=== PATIENT | female | born 1970 | race Caucasian/White ===

== ENCOUNTER → 2016-11-20 | Outpatient (CLI) | payer MEDICARE | LOC: M LRY 09:17 | PROVIDERS: ATTEND Family Medicine | DX: I95.0 Idiopathic hypotension (principal) ==

== ENCOUNTER → 2016-12-05 | Outpatient (CLI) | payer OTHER ==
[2016-12-05 17:36] LABS: PERCENT SATURATION 27.6 % (13.2-37.4)
[2016-12-05 17:44] LABS: FOLATE 20.2 NG/ML (>5.4)
[2016-12-05 18:11] LABS: MEAN CORPUSCULAR HEMOGLOBIN 32.2 pg (27.0-33.0); MEAN CORPUSCULAR HGB CONC 31.8 g/dl (32.0-36.5); MEAN CORPUSCULAR VOLUME 101.4 fl (80.0-96.0); RED CELL DISTRIBUTION WIDTH 13.9 % (11.5-14.5); RETIC HEMOGLOBIN CONTENT CHr 34.4 PG (24-36); RETICULOCYTE % ADVIA2120 1.9 % (0.5-1.5); WHITE BLOOD COUNT 1.3 K/mm3 (4.0-10.0)
== END ==
LOC: M LRY 13:12
PROVIDERS: ATTEND Family Medicine
DX: D50.9 Iron deficiency anemia, unspecified (principal)

== ENCOUNTER → 2017-01-10 | Outpatient (CLI) | payer MEDICARE, OTHER ==
--- NOTE | 2017-01-17 10:54 | REP ---
PET/CT: History: Restaging cervical malignancy. The patient is status post chemo and radiation therapy. Comparisons: Comparison PET-CT study history been retrieved from [facility] dated August 23, 2016 is reviewed. TECHNIQUE: 68 minutes following the intravenous injection of a 8.0 mCi dose of F-18 FDG, three-dimensional PET scintigraphy is acquired from the skull base to the proximal thighs. Triplanar noncontrast CT scanning is acquired through the same anatomic range for attenuation correction, and image registration with scan parameters optimized to minimize radiation exposure to the patient. PET scintigraphy and CT datasets were fused and displayed on a workstation with multiplanar and projection display capability. PET/CT Findings: There is no abnormal hypermetabolic uptake in the uterus cervix, adnexal regions, or pelvic lymph nodes. No retroperitoneal hypermetabolic uptake is seen in the abdomen. No abnormal hypermetabolic uptake is seen in the thorax. Head and neck soft tissues demonstrate a normal variant physiologic uptake in the anterior tongue and at the level of the arytenoid cartilage in the larynx. There is a right-sided Kaqeng-Q-Ckdy catheter. The patient status post craniotomy with a large area of encephalomalacia in the right temporal lobe. There is a atrial septal defect closure device visible and the heart. Impression: The previously noted cervical and right iliac or adnexal hypermetabolic uptake has resolved. No abnormal hypermetabolic uptake seen on today's scan. Signed by Sunil Villegas MD 01/17/2017 10:46 A
== END ==
LOC: M RAD 14:00
PROVIDERS: ATTEND Obstetrics & Gynecology Gynecologic Oncology
DX: C53.9 Malignant neoplasm of cervix uteri, unspecified (principal)
CPT/HCPCS: 78815; A9552

== ENCOUNTER → 2017-03-23 | Outpatient (CLI) | payer MEDICARE, OTHER ==
--- NOTE | 2017-03-23 12:10 | REP ---
LEFT WRIST, FOUR VIEWS: HISTORY: Pain. There is no acute fracture or dislocation. The joint spaces are normal in appearance. IMPRESSION: There is no wrist fracture or dislocation. Signed by Trung Griffith MD 03/23/2017 12:12 P
[2017-03-23 13:41] LABS: MEAN CORPUSCULAR HEMOGLOBIN 32.3 pg (27.0-33.0); MEAN CORPUSCULAR HGB CONC 33.2 g/dl (32.0-36.5); MEAN CORPUSCULAR VOLUME 97.4 fl (80.0-96.0); RED CELL DISTRIBUTION WIDTH 11.2 % (11.5-14.5); WHITE BLOOD COUNT 1.8 K/mm3 (4.0-10.0)
[2017-03-23 14:22] LABS: ALBUMIN 3.8 GM/DL (3.2-5.2); ALBUMIN/GLOBULIN RATIO 1.09 (1.00-1.93); ALKALINE PHOSPHATASE 66 U/L (45-117); ALT/SGPT 39 U/L (12-78); ANION GAP 7 MEQ/L (8-16); AST/SGOT 23 U/L (15-37); BILIRUBIN,TOTAL 0.2 MG/DL (0.2-1.0); BLOOD UREA NITROGEN 13 MG/DL (7-18); CALCIUM LEVEL 8.9 MG/DL (8.5-10.1); CARBON DIOXIDE LEVEL 32 MEQ/L (21-32); CHLORIDE LEVEL 102 MEQ/L (98-107); CHOLESTEROL LEVEL 248 MG/DL (<200); CREATININE FOR GFR 0.77 MG/DL (0.55-1.02); GLOMERULAR FILTRATION RATE > 60.0 (>58); GLUCOSE, FASTING 85 MG/DL (70-105); POTASSIUM SERUM 3.9 MEQ/L (3.5-5.1); SODIUM LEVEL 141 MEQ/L (136-145); TOTAL PROTEIN 7.3 GM/DL (6.4-8.2); TRIGLYCERIDES LEVEL 203 MG/DL (<150); URIC ACID 3.7 MG/DL (2.6-6.0)
[2017-03-26 00:10] LABS: Lyme Disease IgG/IgM Antibodie <0.91 ISR (0.00-0.90); Lyme Disease IgM Ab Quantitati <0.80 index (0.00-0.79)
== END ==
LOC: M LRY 10:00
PROVIDERS: ATTEND Family Medicine
DX: M25.542 Pain in joints of left hand (principal); F32.9 Major depressive disorder, single episode, unspecified; D53.9 Nutritional anemia, unspecified; R73.01 Impaired fasting glucose

== ENCOUNTER → 2017-05-08 | Outpatient (REF) | payer MEDICARE, OTHER ==
[2017-05-08 13:33] LABS: PERCENT SATURATION 5.2 % (13.2-37.4)
[2017-05-08 14:11] LABS: CA 125 19.9 U/ML (<30.2)
== END ==
LOC: M LAB REF 12:14
PROVIDERS: ATTEND Internal Medicine Medical Oncology
DX: D50.9 Iron deficiency anemia, unspecified (principal); Z85.41 Personal history of malignant neoplasm of cervix uteri

== ENCOUNTER → 2017-07-27 | Outpatient (CLI) | payer MEDICARE, OTHER ==
[2017-07-27 13:10] LABS: FREE T4 1.09 NG/DL (0.76-1.46)
== END ==
LOC: M LRY 10:22
PROVIDERS: ATTEND Family Medicine
DX: E05.90 Thyrotoxicosis, unspecified without thyrotoxic crisis or storm (principal)

== ENCOUNTER → 2017-08-10 | Outpatient (CLI) | payer MEDICARE, OTHER ==
--- NOTE | 2017-08-13 19:12 | SLEEPCENT ---
DATE OF PROCEDURE: 08/10/2017 ORDERED BY: Roxy Garnica Nocturnal polysomnography was performed for evaluation of sleep physiology in this patient with a history of excessive somnolence and nonrestorative sleep. 8 hours and 52 minutes of data were reviewed. There were 291 minutes of sleep identified. Sleep latency was quite prolonged at 213 minutes. Rapid eye movement (REM) sleep occurred on time at 60.5 minutes. Sleep architecture was fair with some minimal fragmentation. Overall sleep efficiency was low at 55.7%. The patient's EKG showed a sinus rhythm with premature atrial contractions (PACs), average heart rate 54 beats per minute. EEG showed reasonably normal waveforms. No focal events were identified. There were only five respiratory events identified of 10 seconds in duration or greater for an apnea-hypopnea index within normal limits at 1. Some snoring was noted. Arousals from limb events occurred only once per hour. There was some limb activity, but arousals from limb events only occurred 3.5 times per hour. IMPRESSION: Normal nocturnal polysomnography with snoring. 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 Copy To: Dr. Galan
== END ==
LOC: M SLEEP 19:28
PROVIDERS: ATTEND Nurse Practitioner Adult Health
DX: R40.0 Somnolence (principal)

== ENCOUNTER → 2017-11-12 | Outpatient (CLI) | payer MEDICARE, OTHER | LOC: M LRY 11:24 | DX: M77.8 Other enthesopathies, not elsewhere classified (principal); M41.55 Other secondary scoliosis, thoracolumbar region; M25.50 Pain in unspecified joint ==

== ENCOUNTER → 2017-11-12 | Outpatient (CLI) | payer MEDICARE, OTHER ==
[2017-11-12 15:11] LABS: HEMATOCRIT 33.6 % (36.0-47.0); HEMOGLOBIN 10.6 g/dl (12.0-16.0); MEAN CORPUSCULAR HEMOGLOBIN 33.3 pg (27.0-33.0); MEAN CORPUSCULAR HGB CONC 31.5 g/dl (32.0-36.5); MEAN CORPUSCULAR VOLUME 105.7 fl (80.0-96.0); PLATELET COUNT, AUTOMATED 167 10^3/uL (150-450); RED BLOOD COUNT 3.18 10^6/uL (4.00-5.40); RED CELL DISTRIBUTION WIDTH 11.5 % (11.5-14.5)
[2017-11-12 15:38] LABS: ALBUMIN 3.7 GM/DL (3.2-5.2); ALBUMIN/GLOBULIN RATIO 1.09 (1.00-1.93); ALKALINE PHOSPHATASE 60 U/L (45-117); ALT/SGPT 18 U/L (12-78); ANION GAP 5 MEQ/L (8-16); AST/SGOT 10 U/L (7-37); BILIRUBIN,TOTAL 0.3 MG/DL (0.2-1.0); BLOOD UREA NITROGEN 9 MG/DL (7-18); CALCIUM LEVEL 9.1 MG/DL (8.5-10.1); CARBON DIOXIDE LEVEL 34 MEQ/L (21-32); CHLORIDE LEVEL 102 MEQ/L (98-107); CREATININE FOR GFR 0.56 MG/DL (0.55-1.02); GLOMERULAR FILTRATION RATE > 60.0 (>58); GLUCOSE, FASTING 76 MG/DL (70-100); POTASSIUM SERUM 3.9 MEQ/L (3.5-5.1); SODIUM LEVEL 141 MEQ/L (136-145); TOTAL PROTEIN 7.1 GM/DL (6.4-8.2); URIC ACID 2.6 MG/DL (2.6-6.0)
[2017-11-12 15:52] LABS: POS COUNT POS FLAG; WHITE BLOOD COUNT 1.7 10^3/uL (4.0-10.0)
[2017-11-12 16:15] LABS: ERYTHROCYTE SEDIMENTATION RATE 18 mm/hr (0-20)
== END ==
LOC: M LRY 11:10
DX: M77.8 Other enthesopathies, not elsewhere classified (principal); M41.55 Other secondary scoliosis, thoracolumbar region; M25.50 Pain in unspecified joint; G40.89 Other seizures; K51.90 Ulcerative colitis, unspecified, without complications; R53.83 Other fatigue
CPT/HCPCS: 84443

== ENCOUNTER → 2017-11-27 | Outpatient (REF) | payer MEDICARE, OTHER ==
[2017-11-27 14:31] LABS: SLIDE REVIEW Report; SOURCE PERIPHERAL SMEAR
[2017-11-27 14:32] LABS: REASON FOR REVIEW WBC/LEUKEMIA/BLAST
[2017-11-27 14:52] LABS: ERYTHROCYTE SEDIMENTATION RATE 25 mm/hr (0-20)
[2017-11-27 15:02] LABS: C REACTIVE PROTEIN QUANTITATIV < 0.30 MG/DL (0.00-0.30); FERRITIN 148 NG/ML (8-252); IRON (FE) 82 UG/DL (50-170); PERCENT SATURATION 29.3 % (13.2-45.0); TOTAL IRON BINDING CAPACITY 280 UG/DL (250-450)
[2017-11-27 15:44] LABS: VITAMIN B12 LEVEL 184 PG/ML
[2017-11-27 15:45] LABS: FOLATE 16.1 NG/ML
[2017-11-27 16:13] LABS: CA 125 5.2 U/ML (<30.2)
[2017-11-28 10:06] LABS: HEPATITIS C VIRUS ABY INDEX < 0.0 INDEX (<0.8)
[2017-11-28 10:07] LABS: HIV 1&2 SCREEN CENTAUR NEGATIVE (NEGATIVE)
== END ==
LOC: M LAB REF 13:02
DX: Z85.41 Personal history of malignant neoplasm of cervix uteri (principal); D50.9 Iron deficiency anemia, unspecified; D72.819 Decreased white blood cell count, unspecified
CPT/HCPCS: 82525

== ENCOUNTER → 2017-12-10 | Outpatient (REF) | payer MEDICARE, OTHER ==
[2017-12-10 11:13] LABS: FERRITIN 104 NG/ML (8-252); IRON (FE) 67 UG/DL (50-170); PERCENT SATURATION 22.4 % (13.2-45.0); TOTAL IRON BINDING CAPACITY 299 UG/DL (250-450)
== END ==
LOC: M LAB REF 10:20
DX: D72.819 Decreased white blood cell count, unspecified (principal); D50.9 Iron deficiency anemia, unspecified; C53.9 Malignant neoplasm of cervix uteri, unspecified
CPT/HCPCS: 83550

== ENCOUNTER → 2018-01-08 | Outpatient (REF) | payer MEDICARE, OTHER ==
[2018-01-10 10:18] LABS: LEVETIRACETAM (KEPPRA) 36.4 ug/mL (10.0-40.0)
== END ==
LOC: M LAB REF 13:24
DX: G40.89 Other seizures (principal)
CPT/HCPCS: 80180

== ENCOUNTER → 2018-02-12 | Outpatient (REF) | payer MEDICARE, OTHER ==
[2018-02-12 14:35] LABS: REASON FOR REVIEW WBC/LEUKEMIA/BLAST; SLIDE REVIEW Report; SOURCE PERIPHERAL SMEAR
[2018-02-12 15:02] LABS: FERRITIN 94 NG/ML (8-252); IRON (FE) 73 UG/DL (50-170); PERCENT SATURATION 23.2 % (13.2-45.0); TOTAL IRON BINDING CAPACITY 314 UG/DL (250-450)
== END ==
LOC: M LAB REF 13:23
DX: Z85.41 Personal history of malignant neoplasm of cervix uteri (principal); D50.9 Iron deficiency anemia, unspecified; D72.819 Decreased white blood cell count, unspecified
CPT/HCPCS: 83550

== ENCOUNTER → 2018-03-15 | Outpatient (REF) | payer MEDICARE, OTHER | LOC: M LAB REF 08:02 | DX: C91.Z0 Other lymphoid leukemia not having achieved remission (principal) | CPT/HCPCS: 88300 ==

== ENCOUNTER → 2018-04-08 | Outpatient (REF) | payer MEDICARE, OTHER | LOC: M LAB REF 13:12 | DX: D72.819 Decreased white blood cell count, unspecified (principal) | CPT/HCPCS: 88300 ==

== ENCOUNTER → 2018-05-30 | Outpatient (CLI) | payer MEDICARE, OTHER ==
[~2018-05-30] MED LIST: GASTROGRAFIN SOLUTION 30ML (Q9963) As Ordered; ISOVUE-370 76% 100ML VIAL (Q9967) As Ordered
== END ==
LOC: M RAD 08:53
DX: R10.13 Epigastric pain (principal); Z90.49 Acquired absence of other specified parts of digestive tract; Z85.41 Personal history of malignant neoplasm of cervix uteri; K57.10 Diverticulosis of small intestine without perforation or abscess without bleeding
CPT/HCPCS: Q9963

== ENCOUNTER 2018-06-14 11:19 | Day surgery (SDC) | payer MEDICARE, OTHER ==
[2018-06-14] MEDS: NS 1,000 ML IV (08:00)
[~2018-06-14 11:19] MED LIST changes: -GASTROGRAFIN SOLUTION 30ML (Q9963) As Ordered; -ISOVUE-370 76% 100ML VIAL (Q9967) As Ordered; +LIDOCAINE 2% INJ 100 MG/5 ML SDV (FOR ANES.) As Ordered; +PROPOFOL 200 MG/20 ML VIAL As Ordered
== END 2018-06-14 14:40 | disposition home or self-care (01) ==
LOC: M OPP 11:19
DX: Z12.11 Encounter for screening for malignant neoplasm of colon (principal); K51.90 Ulcerative colitis, unspecified, without complications; R10.13 Epigastric pain; K62.5 Hemorrhage of anus and rectum; K22.8 Other specified diseases of esophagus; K31.89 Other diseases of stomach and duodenum; K50.90 Crohn's disease, unspecified, without complications; K90.0 Celiac disease; Z87.11 Personal history of peptic ulcer disease; R63.4 Abnormal weight loss; K21.9 Gastro-esophageal reflux disease without esophagitis; Z85.41 Personal history of malignant neoplasm of cervix uteri; Z92.3 Personal history of irradiation; Z92.21 Personal history of antineoplastic chemotherapy; D64.9 Anemia, unspecified; M19.90 Unspecified osteoarthritis, unspecified site; M79.7 Fibromyalgia; M41.9 Scoliosis, unspecified; F41.9 Anxiety disorder, unspecified; F32.9 Major depressive disorder, single episode, unspecified; R56.9 Unspecified convulsions; I69.354 Hemiplegia and hemiparesis following cerebral infarction affecting left non-dominant side; G47.8 Other sleep disorders; R06.83 Snoring; Z86.79 Personal history of other diseases of the circulatory system; Z86.69 Personal history of other diseases of the nervous system and sense organs; Z79.899 Other long term (current) drug therapy; Z80.41 Family history of malignant neoplasm of ovary; Z80.1 Family history of malignant neoplasm of trachea, bronchus and lung; Z80.8 Family history of malignant neoplasm of other organs or systems
CPT/HCPCS: 45380

== ENCOUNTER → 2018-07-09 | Outpatient (REF) | payer MEDICARE, OTHER ==
[2018-07-09 14:48] LABS: FERRITIN 98 NG/ML (8-252); IRON (FE) 78 UG/DL (50-170); PERCENT SATURATION 27.9 % (13.2-45.0); TOTAL IRON BINDING CAPACITY 280 UG/DL (250-450)
[2018-07-09 15:03] LABS: CA 125 7.9 U/ML (<30.2)
== END ==
LOC: M LAB REF 13:37
DX: Z85.41 Personal history of malignant neoplasm of cervix uteri (principal); D50.9 Iron deficiency anemia, unspecified; D72.819 Decreased white blood cell count, unspecified; E53.8 Deficiency of other specified B group vitamins; K90.9 Intestinal malabsorption, unspecified; D72.820 Lymphocytosis (symptomatic)
CPT/HCPCS: 83550

== ENCOUNTER → 2018-07-15 | Outpatient (REF) | payer MEDICARE, OTHER ==
[2018-07-15 14:39] LABS: RETIC HEMOGLOBIN EQUIVALENT 37.1 pg (24-36); RETICULOCYTE # 190.3 10^9/L (17-77); RETICULOCYTE % 6.3 % (0.5-1.5)
[2018-07-15 15:09] LABS: FERRITIN 80 NG/ML (8-252); IRON (FE) 94 UG/DL (50-170); TOTAL IRON BINDING CAPACITY 313 UG/DL (250-450)
[2018-07-16 11:24] LABS: ALBUMIN % 61.6 % (55.8-66.1); ALPHA-1-GLOBULIN % 4.7 % (2.9-4.9); ALPHA-2-GLOBULINS % 7.5 % (7.1-11.8); BETA-1-GLOBULINS % 6.2 % (4.7-7.2); BETA-2-GLOBULINS % 4.8 % (3.2-6.5)
[2018-07-16 11:25] LABS: ALBUMIN 4.31 GM/DL (3.29-5.55); ALPHA-1-GLOBULINS 0.33 GM/DL (0.17-0.41); ALPHA-2-GLOBULINS 0.53 GM/DL (0.42-0.99); BETA-1-GLOBULINS 0.43 GM/DL (0.28-0.60); BETA-2-GLOBULINS 0.34 GM/DL (0.19-0.55); GAMMA GLOBULIN % 15.2 % (11.1-18.8); GAMMA GLOBULINS 1.06 GM/DL (0.65-1.58)
[2018-07-16 14:27] LABS: HAPTOGLOBIN < 10 mg/dL (34-200)
== END ==
LOC: M LAB REF 14:03
DX: Z85.41 Personal history of malignant neoplasm of cervix uteri (principal); D50.9 Iron deficiency anemia, unspecified; D72.819 Decreased white blood cell count, unspecified; E53.8 Deficiency of other specified B group vitamins; K90.9 Intestinal malabsorption, unspecified; D72.820 Lymphocytosis (symptomatic)
CPT/HCPCS: 83010

== ENCOUNTER → 2018-09-10 | Outpatient (REF) | payer MEDICARE, OTHER ==
[2018-09-10 15:15] LABS: ANION GAP 5 MEQ/L (8-16); BLOOD UREA NITROGEN 10 MG/DL (7-18); CALCIUM LEVEL 8.3 MG/DL (8.5-10.1); CARBON DIOXIDE LEVEL 32 MEQ/L (21-32); CHLORIDE LEVEL 105 MEQ/L (98-107); CREATININE FOR GFR 0.67 MG/DL (0.55-1.30); GLOMERULAR FILTRATION RATE > 60.0 (>58); GLUCOSE, FASTING 111 MG/DL (70-100); POTASSIUM SERUM 3.8 MEQ/L (3.5-5.1); SODIUM LEVEL 142 MEQ/L (136-145)
== END ==
LOC: M LAB REF 14:34
DX: E87.6 Hypokalemia (principal)
CPT/HCPCS: 80048

== ENCOUNTER 2018-10-23 12:06 | Emergency (ER) | payer MEDICARE, OTHER ==
[~2018-10-23] VITALS: Ht 167.6 cm; Wt 60.0 kg
[~2018-10-23 12:06] MED LIST changes: +AMIT50TA PO; +CLOP75TA2 PO; +DULO1CAP PO; +IBUP1TAB7 PO; +KEPP1TAB PO; -LIDOCAINE 2% INJ 100 MG/5 ML SDV (FOR ANES.) As Ordered; +PANT40TA3 PO; +PARO20TA4 PO; -PROPOFOL 200 MG/20 ML VIAL As Ordered; +QUET5TAB PO; +SERO1TAB PO; +SULF500T2 PO; +VALECAP PO
[2018-10-23] MEDS ORDERED: PLAV1TAB2 PO (12:20)
[2018-10-23] MEDS ORDERED: NAPROXEN 250 MG TAB PO ONE (12:45)
[2018-10-23] MEDS ORDERED: NAPR-50 PO (14:00)
--- NOTE | 2018-10-23 14:01 | REP ---
Chest x-ray: Two views. History: Right rib and pleural pain. Findings: The lungs are well inflated and clear. Pleural angles are sharp. There is a right-sided Xfnsrr-H-Qdfz catheter noted in place with its tip in the expected location of the superior vena cava. There is a intracardiac defect closure device noted. No bony abnormality is seen. Pulmonary vasculature is not increased. Impression: No active disease. Right-sided Vjnmej-G-Nuna catheter. Status post intracardiac defect closure device placement. Electronically Signed by Sunil Villegas MD 10/23/2018 06:52 P
[2018-10-23 14:19] VITALS: BP 112/69
== END 2018-10-23 14:34 | disposition home or self-care (01) ==
LOC: EDBD 12:06 → M ED 12:06
DX: R09.1 Pleurisy (principal); R56.9 Unspecified convulsions; Z91.018 Allergy to other foods; Z79.899 Other long term (current) drug therapy

== ENCOUNTER 2018-11-25 14:01 | Inpatient (IN) | payer MEDICARE, OTHER ==
[~2018-11-25] VITALS: Ht 167.6 cm; Wt 58.8 kg
[~2018-11-25 14:01] MED LIST changes: +APTI1TAB4 PO; +KLOR20TA42 PO; +NAPR-50 PO; +PLAV1TAB2 PO
[2018-11-25 14:49] LABS: BASO % 0.2 % (0.0-1.0); HEMATOCRIT 28.1 % (36.0-47.0); HEMOGLOBIN 9.1 g/dl (12.0-15.5); LYMPH # 0.5 10^3/uL (1.5-4.5); LYMPH % 8.6 % (24.0-44.0); MEAN CORPUSCULAR HEMOGLOBIN 30.2 pg (27.0-33.0); MEAN CORPUSCULAR HGB CONC 32.4 g/dl (32.0-36.5); MEAN CORPUSCULAR VOLUME 93.4 fl (80.0-96.0); MONO # 0.3 10^3/uL (0.0-0.8); MONO % 5.5 % (0.0-5.0); NEUTROPHILS % 85.2 % (36.0-66.0); PLATELET COUNT, AUTOMATED 219 10^3/uL (150-450); RED BLOOD COUNT 3.01 10^6/uL (4.00-5.40); WHITE BLOOD COUNT 5.8 10^3/uL (4.0-10.0)
[2018-11-25 15:01] LABS: INR 1.07
[2018-11-25 15:02] LABS: PARTIAL THROMBOPLASTIN TIME 28.2 SECONDS (25.4-37.6)
[2018-11-25 15:36] LABS: ALBUMIN 3.8 GM/DL (3.2-5.2); ALT/SGPT 16 U/L (12-78); BILIRUBIN,DIRECT < 0.1 MG/DL (0.0-0.2); BILIRUBIN,TOTAL 0.2 MG/DL (0.2-1.0); BLOOD UREA NITROGEN 44 MG/DL (7-18); CALCIUM LEVEL 8.5 MG/DL (8.5-10.1); CARBON DIOXIDE LEVEL 27 MEQ/L (21-32); CHLORIDE LEVEL 103 MEQ/L (98-107); CREATININE FOR GFR 0.86 MG/DL (0.55-1.30); GLOMERULAR FILTRATION RATE > 60.0 (>58); GLUCOSE, FASTING 137 MG/DL (70-100); LIPASE 150 U/L (73-393); POTASSIUM SERUM 3.4 MEQ/L (3.5-5.1); SODIUM LEVEL 139 MEQ/L (136-145); TOTAL PROTEIN 6.4 GM/DL (6.4-8.2)
[2018-11-25] MEDS ORDERED: ONDANSETRON 4MG/2ML VIAL (J2405) IV ONE (16:15)
[2018-11-25] MEDS ORDERED: NS 1,000 ML IV ONE (16:15)
[2018-11-25] MEDS: MORPHINE 2 MG/ML 1ML SYRINGE (J2270) IV PRN ×2 (16:31→18:10)
--- NOTE | 2018-11-25 16:34 | REP ---
Portable chest x-ray: AP semi-erect view. History: Flank pain. Comparison study: October 23, 2018. Findings: A right-sided Ooiixq-W-Jgzd catheter seen in place with its tip in the expected location of the superior vena cava. The lungs are well inflated and clear. The pleural angles are sharp. Heart size is normal. No bony abnormality is seen. Pulmonary vasculature is not increased. Impression: No active disease. Electronically Signed by Sunil Villegas MD 11/25/2018 04:25 P
[2018-11-25] MEDS ORDERED: ISOVUE-370 76% 100ML VIAL (Q9967) As Ordered ONE (16:39)
[2018-11-25] MEDS ORDERED: OMEP20CA3 PO (16:53)
[2018-11-25] MEDS ORDERED: CYAN1000VL IM (16:54)
[2018-11-25] MEDS ORDERED: PANTOPRAZOLE SODIUM 40 MG in D5W 50 ML IV SCH (17:30)
[2018-11-25] MEDS ORDERED: valACYclovir HCL 500 MG TAB PO ONE (17:45)
[2018-11-25 17:56] LABS: CK-MB VALUE MASS < 1.0 NG/ML (<3.6); CPK CREATINE PHOSPHOKINASE 36 U/L (26-192); MB/CK RELATIVE INDEX 2.78 (< OR =4); TROPONIN I < 0.02 NG/ML (< 0.10)
[2018-11-25] MEDS ORDERED: ONDANSETRON 4MG/2ML VIAL (J2405) IV PRN (19:30)
--- NOTE | 2018-11-25 19:45 | REPVR ---
EXAM: US Abdomen Limited, Right Upper Quadrant EXAM DATE/TIME: 11/25/2018 7:10 PM CLINICAL HISTORY: 47 years old, female; Pain; Abdominal pain; Other: Ruq; Prior surgery; Surgery date: 6+ months; Surgery type: Cholecystectomy; Additional info: Dilated cbd TECHNIQUE: Real-time ultrasound of the abdomen with image documentation. Examination was focused on the right upper quadrant. COMPARISON: PT PET/CT Skull/mid thigh 01/10/2017 4:06 PM FINDINGS: Liver: There is a diffuse decrease in hepatic parenchymal density, consistent with fatty infiltration. Gallbladder: Status post cholecystectomy. Common bile duct: Dilated intrahepatic biliary radicals and common bile duct measuring 1.6 cm maximally. Degree of dilatation is atypical for a post cholecystectomy patient. Distal common bile duct obscured by overlying bowel gas. No obstructing mass or choledocholithiasis demonstrated. Correlation with biliary chemistries suggested. Pancreas: Pancreas obscured by overlying bowel gas. Right kidney: Right kidney measures 9.9 x 5.1 x 4.1 cm. Focal parenchymal thinning in the upper anterior portion of the right kidney. Findings related to prior infection or vascular compromise. IMPRESSION: 1. Status post cholecystectomy. 2. Dilated intrahepatic biliary radicals and common bile duct measuring 1.6 cm maximally. Degree of dilatation is atypical for a post cholecystectomy patient. Distal common bile duct obscured by overlying bowel gas. No obstructing mass or choledocholithiasis demonstrated. Correlation with biliary chemistries suggested. 3. There is a diffuse decrease in hepatic parenchymal density, consistent with fatty infiltration. 4. Right kidney measures 9.9 x 5.1 x 4.1 cm. Focal parenchymal thinning in the upper anterior portion of the right kidney. Findings related to prior infection or vascular compromise. Electronically signed by: Waldemar Ruiz On 11/25/2018 19:44:37 PM
--- NOTE | 2018-11-25 19:52 | REP ---
CT ANGIOGRAM CHEST: TECHNIQUE: Axial contrast enhanced images from the thoracic inlet to the upper abdomen using 100 mL Isovue 370 intravenous contrast material with multiplanar reformations. Pulmonary arteries opacify well with contrast without and with contrast no CT evidence of pulmonary embolism. Thoracic aorta is normal in caliber with no aneurysm. There is no dissection. Heart is nor significantly enlarged. There is no pleural or pericardial effusion. There is no mediastinal, hilar, or chest wall lymphadenopathy. No infiltrate is seen in either lung. Visualized osseous structures appear unremarkable. IMPRESSION: No CT evidence of pulmonary embolism or aortic dissection. No abnormal lung opacities identified and no evidence of adenopathy. Electronically Signed by Uziel Mesa MD 11/25/2018 07:59 P
[2018-11-25] MEDS ORDERED: MORPHINE 4 MG/ML 1ML VIAL/SYRINGE (J2270) IV ONE (20:00)
--- NOTE | 2018-11-25 20:09 | REP ---
CT ABDOMEN AND PELVIS WITH IV CONTRAST: TECHNIQUE: Axial contrast enhanced images from the lung bases to the pubic symphysis using 100 mL Isovue 370 intravenous contrast material with multiplanar reformations. COMPARISON: 05/30/2018. The liver demonstrates no mass. There is central intrahepatic biliary dilatation. Common bile duct is dilated up to 16 mm. Previously common bile measured 12 mm. Patient has had a prior cholecystectomy. No definite stone is seen in the common bile duct. Pancreatic duct does not appear to be dilated. Spleen, adrenals, pancreas and kidneys are otherwise unremarkable. There is no hydronephrosis. There is no adenopathy. There is no free air or free fluid. There is no abdominal aortic aneurysm. I see no bowel wall thickening. There is no evidence of appendicitis. No pelvic mass is seen. Urinary bladder is mildly distended and grossly unremarkable. IMPRESSION:Status-post cholecystectomy. Common bile duct is more dilated than on the prior study, currently measuring 16 mm in maximum diameter, previously 12 mm. No definite common bile duct stone is seen. No other acute abnormality is seen. Electronically Signed by Uziel Mesa MD 11/27/2018 01:23 P
--- NOTE | 2018-11-25 20:11 | ECGEPIP ---
Stationary ECG Study [facility] - ED Test Date: 2018-11-25 Pat Name: OUSMANE CASTANEDA Department: Room: - Gender: F Clerk Entry Level: michael : 1970 Requested By: Richard Muir Order Number: [id number] Reading MD: Richard Muir Measurements Intervals [place] Rate: 91 P: 80 MN: 136 QRS: 75 QRSD: 85 T: 73 QT: 388 QTc: 478 Interpretive Statements SINUS RHYTHM WITH SINUS ARRHYTHMIA POSSIBLE RIGHT VENTRICULAR CONDUCTION DELAY NONSPECIFIC ST T WAVE CHANGES PROLONGED QTC CW 03/26/[address] T WAVE CHANGES Electronically Signed On 11-25-2018 20:11:17 EST by Richard Muir
--- NOTE | 2018-11-25 20:31 | HPE ---
DATE OF ADMISSION: 11/25/2018 47-year-old female with past medical history of ulcerative colitis, Crohn's disease, anemia, presents to the emergency room with black tarry stool for the last 24 hours. She also had an episode of coffee ground emesis this morning which brought her to the emergency room (ER). In the ER, she had a CBC which showed stable hemoglobin and hematocrit. She was started on an IV Protonix drip. No further episodes of coffee ground emesis or black tarry stools in the ER. Dr. Robbins was consulted and made aware. He said to keep the patient nothing by mouth for likely EGD. She will be admitted for further management. Again, past medical history of ulcerative colitis, Crohn's disease, history of anemia. Past surgical history of bowel resection and cholecystectomy. ALLERGIES: She has no known drug allergies. FAMILY HISTORY: Noncontributory. SOCIAL HISTORY: Patient denies tobacco, alcohol, or illicit drugs. MEDICATIONS: She takes at home are as follows: - amitriptyline 50 mg orally at bedtime - Plavix 75 mg orally daily - cyanocobalamin 1000 mcg intramuscular (IM) monthly - duloxetine 20 mg orally daily - eslicarbazepine 800 mg orally at bedtime - levetiracetam 500 mg orally twice a day - omeprazole 20 mg orally daily - potassium chloride 20 mEq orally daily - Seroquel 100 mg orally at bedtime - sulfasalazine 500 mg orally three times a day - valerian 50 mg orally at bedtime Review of systems is negative for all ten major systems except what is mentioned in history of present illness (HPI). Vital signs: Blood pressure is 116/63, heart rate is 107 and regular, respiratory rate is 16, temperature is 98.5, oxygen saturation is 99% on room air. Head is atraumatic, normocephalic. Neck is supple, no jugular venous distention (JVD). Lungs are clear to auscultation. S1, S2 audible, no murmurs appreciated. Abdomen is soft, positive bowel sounds. No pedal edema. Skin examination: Vesicular rash noted in the right flank. Neurologic examination: Patient is awake, alert, oriented times three. LABORATORY DATA: WBC 5.8, hemoglobin 9.1, hematocrit 28.1, platelets are 219,000, sodium 139, potassium 3.4, chloride 103, CO2 27, BUN 44, creatinine 0.86, glucose 137, lipase 150. IMPRESSION: 1. Upper gastrointestinal (GI) bleed. PLAN: Patient will be admitted to the medical/surgical floor. Will continue the patient on IV Protonix and gastrointestinal (GI) consultation has been officially ordered. Will await Dr. Robbins's recommendations. I will hold her Plavix and continue other preadmission medications. I will give her Zofran for nausea. Will keep her nothing by mouth and start her on IV fluids normal saline (NS) at 100/hour and will start her on Valtrex for herpetic rash.
[2018-11-25 20:55] VITALS: BP 119/62
[2018-11-25] MEDS: NS 1,000 ML IV SCH (21:09)
[2018-11-25] MEDS: sulfaSALAzine 500 MG TABEC PO SCH (22:16)
[2018-11-25] MEDS: AMITRIPTYLINE 50 MG TAB PO SCH (22:17)
[2018-11-25] MEDS: QUEtiapine FUMARATE 100 MG TAB PO SCH (22:17)
[2018-11-25] MEDS: levETIRAcetam 250MG TABLET (KEPPRA) PO SCH (22:17)
[2018-11-25] MEDS ORDERED: MORPHINE 4 MG/ML 1ML VIAL/SYRINGE (J2270) IV PRN (22:45)
[2018-11-25] MEDS ORDERED: GABAPENTIN 300 MG CAP PO ONE (22:45)
[2018-11-25] MEDS: PANTOPRAZOLE SODIUM 40 MG in D5W 50 ML IV SCH ×2 (23:15→23:30)
[2018-11-26] MEDS: PANTOPRAZOLE SODIUM 40 MG in D5W 50 ML IV SCH ×4 (04:18→19:57)
[2018-11-26 06:00] VITALS: BP 94/58
[2018-11-26 06:25] LABS: BASO % 0.4 % (0.0-1.0); EOS % 0.4 % (0.0-3.0); HEMATOCRIT 20.4 % (36.0-47.0); LYMPH % 34.3 % (24.0-44.0); MEAN CORPUSCULAR HEMOGLOBIN 30.2 pg (27.0-33.0); MEAN CORPUSCULAR HGB CONC 31.9 g/dl (32.0-36.5); MEAN CORPUSCULAR VOLUME 94.9 fl (80.0-96.0); MONO # 0.3 10^3/uL (0.0-0.8); MONO % 10.6 % (0.0-5.0); NEUTROPHILS # 1.5 10^3/uL (1.8-7.7); NEUTROPHILS % 53.9 % (36.0-66.0); PLATELET COUNT, AUTOMATED 166 10^3/uL (150-450); RED BLOOD COUNT 2.15 10^6/uL (4.00-5.40); WHITE BLOOD COUNT 2.8 10^3/uL (4.0-10.0)
[2018-11-26 06:29] LABS: HEMOGLOBIN 6.5 g/dl (12.0-15.5)
[2018-11-26 07:02] LABS: BLOOD UREA NITROGEN 23 MG/DL (7-18); CALCIUM LEVEL 7.6 MG/DL (8.5-10.1); CARBON DIOXIDE LEVEL 26 MEQ/L (21-32); CHLORIDE LEVEL 108 MEQ/L (98-107); CREATININE FOR GFR 0.52 MG/DL (0.55-1.30); GLOMERULAR FILTRATION RATE > 60.0 (>58); GLUCOSE, FASTING 96 MG/DL (70-100); POTASSIUM SERUM 3.4 MEQ/L (3.5-5.1); SODIUM LEVEL 141 MEQ/L (136-145)
[2018-11-26] MEDS: NS 1,000 ML IV SCH ×2 (07:30→14:06)
[2018-11-26] MEDS: valACYclovir HCL 500 MG TAB PO SCH ×2 (08:15→20:13)
[2018-11-26] MEDS: DULoxetine 20 MG CAP (CYMBALTA) PO SCH (08:15)
[2018-11-26] MEDS: POTASSIUM CHLORIDE 10 MEQ SR TABLET PO SCH (08:15)
[2018-11-26] MEDS: sulfaSALAzine 500 MG TABEC PO SCH ×3 (08:16→20:13)
[2018-11-26] MEDS: levETIRAcetam 250MG TABLET (KEPPRA) PO SCH ×2 (08:16→20:14)
[2018-11-26] MEDS ORDERED: OMEPRAZOLE 20 MG CAP PO SCH (09:00)
[2018-11-26 14:00] VITALS: BP 109/63
[2018-11-26] MEDS ORDERED: NS 1,000 ML IV SCH (14:30)
[2018-11-26] MEDS ORDERED: NS 1,000 ML IV ONE (14:30)
--- NOTE | 2018-11-26 15:26 | ROOR ---
Patient Name: Angelia Elizabeth Procedure Date: 11/26/2018 2:55 PM Date of : 1970 Age: 47 Room: [facility] Gender: Female Note Status: Finalized Procedure: Upper Endoscopy + Biopsies Indications: Hematemesis, Melena, Recent gastrointestinal bleeding Providers: Venancio Robbins MD Referring MD: BATOOL SHELLEY MD Requesting Provider: Medicines: Monitored Anesthesia Care Complications: No immediate complications. Procedure: Pre-Anesthesia Assessment: - The heart rate, respiratory rate, oxygen saturations, blood pressure, adequacy of pulmonary ventilation, and response to care were monitored throughout the procedure. The Endoscope was introduced through the mouth, and advanced to the second part of duodenum. The upper GI endoscopy was accomplished without difficulty. The patient tolerated the procedure well. Findings: The Z-line was regular and was found 35 cm from the incisors. A small hiatal hernia was present. No other significant abnormalities were identified in a careful examination of the stomach. Biopsies were taken with a cold forceps in the gastric antrum for Helicobacter pylori testing. Diffuse mucosal flattening was found in the first portion of the duodenum. Biopsies for histology were taken with a cold forceps for evaluation of celiac disease. The exam was otherwise without abnormality. One non-bleeding cratered duodenal ulcer was found in the first portion of the duodenum. The exam was otherwise without abnormality. Impression: - Z-line regular, 35 cm from the incisors. - Small hiatal hernia. - Flattened mucosa was found in the duodenum, suspicious for celiac disease. Biopsied. - The examination was otherwise normal. - One non-bleeding duodenal ulcer. - The examination was otherwise normal. - Biopsies were taken with a cold forceps for Helicobacter pylori testing. Recommendation: - Patient has a contact number available for emergencies. The signs and symptoms of potential delayed complications were discussed with the patient. Return to normal activities tomorrow. Written discharge instructions were provided to the patient. - Continue present medications. - Await pathology results. - Telephone GI clinic for pathology results in 1 week. - Return patient to hospital [facility] for ongoing care. - Advance diet as tolerated and full liquid diet. - Continue present medications. - Await pathology results. - Telephone GI clinic for pathology results in 1 week. Venancio Robbins MD Venancio Robbins MD 11/26/2018 3:26:33 PM This report has been signed electronically. Number of Addenda: 0 Note Initiated On: 11/26/2018 2:55 PM Estimated Blood Loss: Estimated blood loss: none.
[2018-11-26 16:10] VITALS: BP 102/61
--- NOTE | 2018-11-26 19:27 | IPN ---
DATE: 11/26/2018 Patient examined at bedside. She had no new complaints. No events overnight. States that she feels mildly fatigued. Per the patient, she came in after she had 2 days of bright red vomiting and black, tarry stools. She states she has had similar episodes a couple of years ago, once when she had a bowel blockage, and the other time when she had her appendix removed. She states she does have a history of stomach ulcers that were found through scopes in the past. Of note, she has been taking two to three nonsteroidal anti-inflammatory drugs (NSAIDs) a day for her back pain. She denies any other complaints. No fever, chills, abdominal pain. This morning nausea and vomiting have subsided. No constipation or diarrhea. She continues to be on intravenous (IV) fluids, nothing by mouth, and on Protonix drip, awaiting gastrointestinal (GI) consult today. PHYSICAL EXAMINATION: VITAL SIGNS: Temperature 96.3, pulse 85, respirations 12, blood pressure (BP) 94/50 with a mean arterial pressure (MAP) of 70, pulse oximetry 93% on room air. GENERAL: Alert and oriented times three, resting comfortably in bed in no acute distress. Visibly is tired. HEENT: Normocephalic, atraumatic. Extraocular muscles intact. Pale conjunctivae and overall pale appearing. CARDIAC: Regular rate and rhythm. No audible murmurs. Normal S1 and S2. LUNGS: Clear bilaterally. No wheezing, rhonchi, or rales. Equal chest rise. ABDOMEN: Soft, nontender, nondistended. Hyperactive bowel sounds. EXTREMITIES: Radial and dorsalis pedis pulses 2+ bilaterally. No clubbing, cyanosis, or edema. SKIN: No visible lesions, rashes, or ulcerations. MUSCULOSKELETAL: Able to move all extremities without any deficits. NEUROLOGIC: No focal deficits. ASSESSMENT AND PLAN: 1. Acute blood loss anemia. Patient's hemoglobin and hematocrit this morning has dropped from 9 yesterday to 6.5 today. She has been consented for a blood transfusion, and 2 units have been ordered with a recheck in the afternoon. She continues to be nothing by mouth on a Protonix drip and on IV fluids, awaiting scope today with Dr. Robbins. Of note, she does have a history of chronic NSAID use and a history of gastric ulcers in the past per the patient. She has been advised to avoid any NSAID use and limit her caffeine and alcohol and tobacco. Of note, the patient did undergo an esophagogastroduodenoscopy (EGD) and colonoscopy on 06/10/2018. EGD revealed a duodenal scar and otherwise was normal. Differential at this point includes peptic ulcer disease versus arteriovenous malformation (AVM) versus worsening of her ulcerative colitis. 2. History of cerebrovascular accident (CVA). Per the patient was years ago. We do not have any records. For this she is on long-term Plavix. It is currently on hold given her acute bleed. 3. History of ulcerative colitis. She is normally on sulfasalazine 500 mg three times a day at home, which is continued inpatient. 4. Depression versus bipolar disorder. She is continued on her Seroquel, duloxetine, and amitriptyline. Currently is stable. 5. History of seizure disorder. She is continued on her Keppra and her eslicarbazepine. 6. Shingles. She is currently on day 1 of Valtrex and on contact isolation. Continue monitoring. 7. Hx of cervical cancer. S/p chemo, ended Sep 2016. Infusaport still present on right chest wall. Was to be removed Sep 2018, 2 years after last chemo. Currently in use for hospital meds. Deep vein thrombosis (DVT) prophylaxis. Thromboembolic deterrents (TEDs), sequential compression devices (SCDs). Hold anticoagulation given her acute bleed. DISPOSITION: Pending blood transfusion and GI consult and scope today. My faculty preceptor for this patient encounter was physically present during the encounter and was fully available. All aspects of the patient interview, examination, medical decision making process, and medical care plan development were reviewed and approved by the faculty preceptor. The faculty preceptor is aware and concurs with the plan as stated in the body of this note and will attest to such by his/her co-signature. RODRÍGUEZ
--- NOTE | 2018-11-26 19:29 | CR ---
DATE OF CONSULTATION: 11/26/2018 This is a 47-year-old white female who presents with a history of apparent upper gastrointestinal (GI) bleeding. The patient has a past medical history of multiple medical issues including cervical cancer diagnosed in July of [address] Sanchez, apparent inflammatory bowel disease, probably ulcerative colitis, chronic leukopenia, diabetes mellitus, depression, history of a cerebrovascular accident (CVA) in 2013 which required apparently the patient had some kind of surgical operation on her brain, possible pulmonary embolism (PE) in 2016, and the patient is on Plavix for this. The patient presents with a 24-hour history of black tarry stools and had some coffee-ground emesis the day of coming to the emergency room. She has been taking nonsteroidal medications for chronic back issues. She denies any complaints of abdominal pain, weight loss, nausea, vomiting. The patient again is on Plavix for a previous history of PE. ALLERGIES: No known declared allergies. FAMILY HISTORY: Noncontributory. SOCIAL HISTORY: Cigarettes, alcohol, drugs negative. MEDICATIONS: Include: Amitriptyline, Plavix, vitamin B12, duloxetine, eslicarbazepine 800 mg daily, levetiracetam, omeprazole, potassium, Seroquel, sulfasalazine, and valerian 50 mg at bedtime. REVIEW OF SYSTEMS: Noncontributory to the above problem. GENERAL: This is a well-developed, well-nourished, white female in no obvious acute distress. Appears stated age. CHEST: Clear to auscultation. CARDIOVASCULAR: Showed a regular rhythm. ABDOMEN: Soft, nontender. No masses, guarding, or rebound. No hepatosplenomegaly. Bowel sounds positive. DIAGNOSTIC STUDIES: On admission, the patient had a hemoglobin of 9.1 and 28.1, white count was normal at 5800, subsequent white count is 6.5 and 5.4, the patient is supposed to receive two units of packed cells. The patient's INR was normal at 1.0. Chemistry was completely normal. Albumin was 3.8. Liver functions were normal. IMAGING STUDIES: On admission includes an abdominal CT which shows status post cholecystectomy, common bile duct was slightly more dilated than on past studies, measuring approximately 16 mm in diameter. No stones were seen. Ultrasound of the right upper quadrant shows again the patient is status post cholecystectomy. She has dilated intrahepatic biliary radicles, duct was measuring 1.6 cm, distal common bile duct loops obscured by gas. No obvious obstructing mass or stones were noted. The patient had what appeared to be possible fatty liver. The patient also had an angiogram CT which showed no evidence of any embolism or aortic dissection. ANALYSIS: Anemia in a patient with melena and coffee-ground emesis The plan will be to transfuse the patient, start her on IV proton pump inhibitor (PPI) infusion, keep the patient nothing by mouth. The patient will be set up for upper endoscopy today for further evaluation. The patient has been previously scoped in 2018 by myself in which we did find a duodenal scar and a normal colon.
[2018-11-26] MEDS: AMITRIPTYLINE 50 MG TAB PO SCH (20:13)
[2018-11-26] MEDS: QUEtiapine FUMARATE 100 MG TAB PO SCH (20:13)
[2018-11-26] MEDS: GABAPENTIN 300 MG CAP PO SCH (20:45)
[2018-11-26] MEDS: ACETAMINOPHEN TAB 650MG DOSE (2X325MG) PO PRN (20:46)
[2018-11-26 22:00] VITALS: BP 102/60
[2018-11-27] MEDS: PANTOPRAZOLE SODIUM 40 MG in D5W 50 ML IV SCH ×5 (00:10→20:15)
[2018-11-27] MEDS: NS 1,000 ML IV SCH ×2 (00:10→05:50)
[2018-11-27 00:55] VITALS: BP 78/52
[2018-11-27 06:05] VITALS: BP 82/56
[2018-11-27 06:19] LABS: HEMATOCRIT 25.5 % (36.0-47.0); HEMOGLOBIN 8.3 g/dl (12.0-15.5); MEAN CORPUSCULAR HEMOGLOBIN 29.7 pg (27.0-33.0); MEAN CORPUSCULAR HGB CONC 32.5 g/dl (32.0-36.5); MEAN CORPUSCULAR VOLUME 91.4 fl (80.0-96.0); PLATELET COUNT, AUTOMATED 130 10^3/uL (150-450); RED BLOOD COUNT 2.79 10^6/uL (4.00-5.40)
[2018-11-27 06:43] LABS: BLOOD UREA NITROGEN 7 MG/DL (7-18); CALCIUM LEVEL 7.9 MG/DL (8.5-10.1); CARBON DIOXIDE LEVEL 25 MEQ/L (21-32); CHLORIDE LEVEL 114 MEQ/L (98-107); CREATININE FOR GFR 0.53 MG/DL (0.55-1.30); GLOMERULAR FILTRATION RATE > 60.0 (>58); GLUCOSE, FASTING 88 MG/DL (70-100); POTASSIUM SERUM 3.4 MEQ/L (3.5-5.1); SODIUM LEVEL 146 MEQ/L (136-145)
[2018-11-27] MEDS: GABAPENTIN 300 MG CAP PO SCH ×2 (08:27→20:15)
[2018-11-27] MEDS: levETIRAcetam 250MG TABLET (KEPPRA) PO SCH ×2 (08:28→20:14)
[2018-11-27] MEDS: DULoxetine 20 MG CAP (CYMBALTA) PO SCH (08:28)
[2018-11-27] MEDS: POTASSIUM CHLORIDE 10 MEQ SR TABLET PO SCH (08:28)
[2018-11-27] MEDS: sulfaSALAzine 500 MG TABEC PO SCH ×3 (08:28→20:14)
[2018-11-27] MEDS: valACYclovir HCL 500 MG TAB PO SCH ×2 (08:29→20:15)
[2018-11-27] MEDS: D5W/0.45% SODIUM CHLORIDE 1,000 ML IV SCH ×2 (10:40→20:16)
--- NOTE | 2018-11-27 13:44 | IPN ---
DATE: 11/27/2018 Patient examined at bedside, resting comfortably. She underwent an EGD by Dr. Robbins yesterday which revealed a non-bleeding duodenal ulcer. Otherwise, there was no specific etiology to her acute anemia. She continues to feel fatigued overnight. She did have soft blood pressures and felt lightheaded, which is resolved this morning after her fluid rate was increased from 100 to 150. No other events or issues. Of note, her hemoglobin responded well to 2 units transfused yesterday. PHYSICAL EXAMINATION: VITAL SIGNS: Temperature 96.8, pulse 54, respirations 16, blood pressure (BP) 82/56 with a mean arterial pressure (MAP) of 65, pulse oximetry 95% on room air. GENERAL: Alert and oriented times three, resting comfortably in bed in no acute distress. HEENT: Normocephalic, atraumatic. Extraocular muscles intact. Pale conjunctivae, and overall pale appearing. CARDIAC: Regular rate and rhythm. No audible murmurs. Normal S1 and S2. LUNGS: Clear bilaterally. No wheezing, rhonchi, or rales. Has equal chest rise. ABDOMEN: Soft, nontender, nondistended. Normal bowel sounds. EXTREMITIES: 2+ radial and dorsalis pedis pulses bilaterally. No clubbing, cyanosis, or edema. SKIN: There are a few brown macules in a linear pattern on her right posterior flank. No visible oozing, crusting or ulcerations. This is currently being treated with Valtrex. MUSCULOSKELETAL: Able to move all extremities, with 5/5 strength. NEUROLOGIC: No focal deficits. LABS: WBC 2, hemoglobin and hematocrit 8.3/25.5, platelets 130, sodium 146, potassium 3.4, BUN/creatinine 7/0.53. ASSESSMENT AND PLAN: 1. Acute blood loss anemia. Patient initially presented with bright red bloody vomit and melanotic stools and symptomatic anemia. Her hemoglobin has responded well to 2 units transfused yesterday, up from 6.5 to 8.3 today. She underwent an EGD yesterday, which did not find any acute bleed. We will repeat her CBC later today to ensure that her blood levels remain stable. Currently we will continue her on her Protonix drip and on IV fluids. The patient is advised to discontinue her NSAID use as she had previously been taking 2-3 Motrin a day for her back pain. 2. Symptomatic hypotension. The patient felt lightheaded last night as her blood pressure was in the 90s/60s. Her fluid rate was increased and we will now change her fluid over from normal saline to half normal saline D5 and continue close monitoring. She is no longer symptomatic as of this morning. 3. History of cerebrovascular accident (CVA) years ago, however we do not have records. She is on Plavix, which is on hold given her acute bleed and anemia. 3. History of ulcerative colitis. She is continued on her sulfasalazine. 4. Depression versus bipolar disorder. She is continued on her Seroquel, duloxetine, and amitriptyline. Currently is stable. 5. History of seizure disorder. Continue Keppra and eslicarbazepine. 6. Shingles. Rash and pain on the right posterior flank. She is currently on day 2 of her Valtrex and she was also started on gabapentin for the pain as well, which has significantly helped. Continue contact isolation. 7. History of cervical cancer. The patient is status post chemo that ended in September 2016. Infusaport right chest wall is scheduled to be removed, but currently in place for inpatient medications. 8. Deep vein thrombosis (DVT) prophylaxis. Thromboembolic deterrents (TEDS) and sequential compression devices (SCDs). Hold anticoagulation given her acute bleed. DISPOSITION: Pending clinical improvement. My faculty preceptor for this patient encounter was physically present during the encounter and was fully available. All aspects of the patient interview, examination, medical decision making process, and medical care plan development were reviewed and approved by the faculty preceptor. The faculty preceptor is aware and concurs with the plan as stated in the body of this note and will attest to such by his/her co-signature. RODRÍGUEZ
[2018-11-27 14:00] VITALS: BP 124/63
[2018-11-27 18:13] LABS: HEMATOCRIT 29.4 % (36.0-47.0); HEMOGLOBIN 9.4 g/dl (12.0-15.5); MEAN CORPUSCULAR HEMOGLOBIN 29.7 pg (27.0-33.0); MEAN CORPUSCULAR VOLUME 92.7 fl (80.0-96.0); PLATELET COUNT, AUTOMATED 170 10^3/uL (150-450); RED BLOOD COUNT 3.17 10^6/uL (4.00-5.40); WHITE BLOOD COUNT 2.9 10^3/uL (4.0-10.0)
[2018-11-27] MEDS: QUEtiapine FUMARATE 100 MG TAB PO SCH (20:14)
[2018-11-27] MEDS: AMITRIPTYLINE 50 MG TAB PO SCH (20:15)
[2018-11-27 22:00] VITALS: BP 94/56
[2018-11-28] MEDS: PANTOPRAZOLE SODIUM 40 MG in D5W 50 ML IV SCH ×4 (00:42→16:04)
[2018-11-28 00:44] VITALS: BP 112/82
[2018-11-28] MEDS: D5W/0.45% SODIUM CHLORIDE 1,000 ML IV SCH ×2 (05:03→16:05)
[2018-11-28 05:38] LABS: HEMOGLOBIN 9.2 g/dl (12.0-15.5); MEAN CORPUSCULAR HEMOGLOBIN 29.3 pg (27.0-33.0); MEAN CORPUSCULAR HGB CONC 31.7 g/dl (32.0-36.5); MEAN CORPUSCULAR VOLUME 92.4 fl (80.0-96.0); PLATELET COUNT, AUTOMATED 183 10^3/uL (150-450); RED BLOOD COUNT 3.14 10^6/uL (4.00-5.40); WHITE BLOOD COUNT 2.9 10^3/uL (4.0-10.0)
[2018-11-28 06:00] VITALS: BP 126/68
[2018-11-28 06:02] LABS: BLOOD UREA NITROGEN 2 MG/DL (7-18); CALCIUM LEVEL 8.1 MG/DL (8.5-10.1); CARBON DIOXIDE LEVEL 29 MEQ/L (21-32); CHLORIDE LEVEL 109 MEQ/L (98-107); CREATININE FOR GFR 0.65 MG/DL (0.55-1.30); GLOMERULAR FILTRATION RATE > 60.0 (>58); GLUCOSE, FASTING 107 MG/DL (70-100); POTASSIUM SERUM 3.4 MEQ/L (3.5-5.1); SODIUM LEVEL 143 MEQ/L (136-145)
[2018-11-28] MEDS: ACETAMINOPHEN TAB 650MG DOSE (2X325MG) PO PRN (08:19)
[2018-11-28] MEDS: GABAPENTIN 300 MG CAP PO SCH ×2 (08:20→20:45)
[2018-11-28] MEDS: POTASSIUM CHLORIDE 10 MEQ SR TABLET PO SCH (08:20)
[2018-11-28] MEDS: levETIRAcetam 250MG TABLET (KEPPRA) PO SCH ×2 (08:20→20:45)
[2018-11-28] MEDS: sulfaSALAzine 500 MG TABEC PO SCH ×3 (08:20→20:45)
[2018-11-28] MEDS: valACYclovir HCL 500 MG TAB PO SCH ×2 (08:21→20:45)
[2018-11-28] MEDS: DULoxetine 20 MG CAP (CYMBALTA) PO SCH (08:21)
[2018-11-28] MEDS ORDERED: POTASSIUM CHLORIDE 10 MEQ SR TABLET PO ONE (11:00)
[2018-11-28 14:00] VITALS: BP 98/58
--- NOTE | 2018-11-28 19:59 | IPN ---
DATE: 11/28/2018 Patient was examined at bedside, resting comfortably. No events overnight. Patient states that she is having non-bloody bowel movements however is having some diarrhea and was noted to have 7 bowel movements yesterday, she states are her normal color, not any black tarry stools. No nausea or vomiting. She is no longer having any lightheadedness of dizziness. Her blood pressure remains stable, as well as her hemoglobin. PHYSICAL EXAMINATION: VITALS: Temperature 96.7, pulse 80, respirations 16, blood pressure 126/68 with a map of 87, pulse ox 95% on room air. GENERAL: Alert and oriented times three. Resting comfortably in bed in no acute distress. Fully conversant. HEENT: Normocephalic atraumatic. Extraocular muscles are intact. Slightly pale conjunctiva but improvement from previous days. CARDIAC: Regular rate and rhythm. No audible murmurs. Normal S1, S2. LUNGS: Clear bilaterally. No wheezing, rhonchi, or rales. Equal chest rise. ABDOMEN: Soft, nontender, and nondistended. Normal bowel sounds. EXTREMITIES: 2+ radial pulses bilaterally. No clubbing, cyanosis or edema. SKIN: The presumed shingles rash on the right posterior flank is significantly improved and almost fully resolved. There is still 2-3 few brown macules still present, however no visible ooozing, crusting or ulcerations overall. MUSCULOSKELETAL: Able to move all extremities. LABS: WBC 2.9, hemoglobin and hematocrit 9.2 and 29, platelets 183, sodium 143, potassium 3.4, chloride 109, BUN and creatinine 2 and 0.65. GI pathology from 11/26/2018 EGD is still pending. 1. Acute blood loss anemia. Patient's hemoglobin and hematocrit remains stable status-post 2 units transfused during this stay. She has a hemoglobin of 9 this morning and is symptomatically feeling much better. She is tolerating regular diet well and is not having any abdominal pain and no longer having any melena or vomiting. We will discontinue her Protonix drip and switch to po protonix. 2. Iatrogenic hypernatremia. Her sodium has improved from 146 to 143 after changing her fluids from normal saline to D5 half normal. We will continue the fluids as her blood pressures have been slightly soft since yesterday and continue to monitor her hypotension. 3. Diarrhea. Patient denies any hematochezia or melena however is having 7 loose stools as of yesterday. We will check for C. Diff, however this may also be a side effect from advancing her diet as she is put on a regular diet. 4. History of CVA years ago. We do not have records. Her Plavix continues to be on hold due to her acute bleed. We will recheck her hemoglobin and hematocrit tomorrow and consider resuming Plavix is she continues to be stable. 5. History of ulcerative colitis. Continue her sulfasalazine. 6. Depression with bipolar disorder. She is continued on Seroquel, Duloxetine and Amitriptyline is stable. 7. History of seizure disorder, stable. Continue Keppra and eslicarbazepine. 8. Shingles rash on the right posterior flank is significantly improving and no longer tender. She is currently on day 3 of Valtrex and gabapentin for her neuropathic pain with the rash. 9. History of cervical cancer. She is status-post chemotherapy. That concluded in September 2016. She still has an Infusaport in the right chest wall that is to be removed, however it is currently being used for hospital medications. 10. DVT prophylaxis. Continue EMERITA and SCD given her acute bleed. DISPOSITION: Pending clinical improvement and C. Diff screen, possible discharge for tomorrow. My faculty preceptor for this patient encounter was physically present during the encounter and was fully available. All aspects of the patient interview, examination, medical decision making process, and medical care plan development were reviewed and approved by the faculty preceptor. The faculty preceptor is aware and concurs with the plan as stated in the body of this note and will attest to such by his/her cosignature. RODRÍGUEZ
[2018-11-28] MEDS: AMITRIPTYLINE 50 MG TAB PO SCH (20:45)
[2018-11-28] MEDS: QUEtiapine FUMARATE 100 MG TAB PO SCH (20:45)
[2018-11-28 22:00] VITALS: BP 118/68
[2018-11-29] MEDS: D5W/0.45% SODIUM CHLORIDE 1,000 ML IV SCH ×3 (01:57→20:30)
[2018-11-29 05:40] LABS: HEMATOCRIT 28.8 % (36.0-47.0); HEMOGLOBIN 9.3 g/dl (12.0-15.5); MEAN CORPUSCULAR HEMOGLOBIN 29.4 pg (27.0-33.0); MEAN CORPUSCULAR HGB CONC 32.3 g/dl (32.0-36.5); MEAN CORPUSCULAR VOLUME 91.1 fl (80.0-96.0); PLATELET COUNT, AUTOMATED 209 10^3/uL (150-450); RED BLOOD COUNT 3.16 10^6/uL (4.00-5.40); WHITE BLOOD COUNT 3.3 10^3/uL (4.0-10.0)
[2018-11-29 06:00] VITALS: BP 120/64
[2018-11-29 06:01] LABS: BLOOD UREA NITROGEN 8 MG/DL (7-18); CARBON DIOXIDE LEVEL 29 MEQ/L (21-32); CHLORIDE LEVEL 108 MEQ/L (98-107); CREATININE FOR GFR 0.68 MG/DL (0.55-1.30); GLOMERULAR FILTRATION RATE > 60.0 (>58); GLUCOSE, FASTING 106 MG/DL (70-100); POTASSIUM SERUM 3.4 MEQ/L (3.5-5.1); SODIUM LEVEL 143 MEQ/L (136-145)
[2018-11-29 07:49] LABS: MAGNESIUM LEVEL 1.5 MG/DL (1.8-2.4)
[2018-11-29] MEDS ORDERED: PANTOPRAZOLE 40MG INJ (PROTONIX) (C9113) IV SCH (09:00)
[2018-11-29] MEDS ORDERED: PANTOPRAZOLE 40MG TAB (PROTONIX) PO SCH (09:00)
[2018-11-29] MEDS: GABAPENTIN 300 MG CAP PO SCH ×2 (09:40→20:30)
[2018-11-29] MEDS: sulfaSALAzine 500 MG TABEC PO SCH ×3 (09:40→20:30)
[2018-11-29] MEDS: valACYclovir HCL 500 MG TAB PO SCH ×2 (09:41→20:30)
[2018-11-29] MEDS: POTASSIUM CHLORIDE 10 MEQ SR TABLET PO SCH (09:41)
[2018-11-29] MEDS: levETIRAcetam 250MG TABLET (KEPPRA) PO SCH ×2 (09:41→20:30)
[2018-11-29] MEDS: DULoxetine 20 MG CAP (CYMBALTA) PO SCH (09:44)
[2018-11-29] MEDS ORDERED: MAGNESIUM OXIDE 400 MG TAB (MAG-OX) PO ONE (10:45)
[2018-11-29 14:00] VITALS: BP 105/65
--- NOTE | 2018-11-29 16:33 | IPN ---
DATE: 11/29/2018 Patient was examined at bedside. No acute events overnight. Patient is overall feeling better. No nausea, vomiting, or abdominal pain, however she continues to have foul smelling loose diarrhea with four bowel movements yesterday, and 7 the day prior. Clostridium (C) difficile testing is currently pending. No other issues. PHYSICAL EXAMINATION: VITAL SIGNS: Temperature 98.9, pulse 80, respirations 18, blood pressure 120/64 with a mean arterial pressure (MAP) of 82, pulse oxygenation 96% on room air. GENERAL: Alert and oriented times three, resting comfortably in bed, no acute distress, fully conversant. HEENT: Normocephalic, atraumatic. Extraocular muscles intact. Pupils equal and reactive to light and accommodation. Slightly pale conjunctivae, but improved from admission. CARDIAC: Regular rate, rhythm. No audible murmurs. Normal S1 and S2. LUNGS: Clear bilaterally. No wheezing, rhonchi, or rales. Equal chest rise. ABDOMEN: Soft, nontender, nondistended. Normal bowel sounds. EXTREMITIES: 2+ radial pulses bilaterally. No clubbing, cyanosis, or edema. SKIN: Presumed shingles rash is much improved and almost fully resolved on the right posterior flank, it is still mildly tender to palpation. There are no vesicles or bullae, however the 2-3 few brown macules are almost fully resolved. MUSCULOSKELETAL: Able to move all extremities. LABORATORY DATA: WBC 3.3, hemoglobin and hematocrit 9.3 and 28.8, platelets 209, sodium 143, potassium 3.4, BUN and creatinine is 8 and 0.68, magnesium 1.5. Pathology from 11/26/2018 EGD reveals small bowel biopsy shows diffuse villous blunting without significant increase or inflammation. Stomach biopsy revealed mild chronic gastritis with reactive epithelial changes. No Helicobacter (H) pylori. ASSESSMENT/PLAN: 1. Acute diarrhea. Patient has had seven bowel movements 2 days prior and 4 bowel movements yesterday. No blood in the stool, however it is loose and foul smelling. Currently awaiting Clostridium (C) difficile testing. 2. Acute blood loss anemia. Her hemoglobin and hematocrit continue to remain stable at a level of 9 and she is no longer symptomatic. She is status post two units transfused during this stay. Tolerating regular diet. Her Protonix drip has been changed to by mouth Protonix bid and carafate bid has also been started per GI recommendations. The source of the melena and hematemesis which she initially presented with was possibly her ulcer found during the EGD, but it was nonbleeding at the time. Her pathology from the EGD done on 11/26/2018, reveals villous blunting in the small bowel and chronic gastritis in the stomach. A celiac panel has been ordered which is currently pending. 3. Mild hypotension. She has episodes where her systolic blood pressure goes into the 90s. She continues on IV fluids, dextrose 5% (D5) half normal saline at a rate of 100. Overall is asymptomatic. She is encouraged to increase her by mouth intake. 4. Hypomagnesemia and hypokalemia. Supplemented today. Recheck tomorrow. 5. History of CVA years ago. We do not have records of this, however patient was on Plavix on admission and this was held given her acute bleed. We will resume this along with PPI & Carafate per GI. Monitor her hemoglobin and hematocrit. 6. History of ulcerative colitis. Continue sulfasalazine. 7. Depression versus bipolar disorder. She is continued on Seroquel, duloxetine, amitriptyline and is currently stable. 8. History of seizure disorder. Is stable. Continue Keppra and eslicarbazepine. 9. Shingles rash on right posterior flank. Is improving. She is now on day #4 of Valtrex and gabapentin is helping with the neuropathic pain with the rash. 10. History of cervical cancer status post chemotherapy that concluded September 2016. There is an [id number] present on the right chest wall, currently is being used for hospital medications but is scheduled to be removed this time of the year. 11. Deep venous thrombosis (DVT) prophylaxis. Thromboembolism deterrents (TEDs) and sequential compression devices (SCDs) given her acute bleed. DISPOSITION: Pending Clostridium (C) difficile screen and follow hemoglobin and hematocrit after restarting Plavix. Possible discharge tomorrow. My faculty preceptor for this patient encounter was physically present during the encounter and was fully available. All aspects of the patient interview, examination, medical decision making process, and medical care plan development were reviewed and approved by the faculty preceptor. The faculty preceptor is aware and concurs with the plan as stated in the body of this note and will attest to such by his/her cosignature. RODRÍGUEZ
[2018-11-29] MEDS: SUCRALFATE 1 GM TAB PO SCH (18:45)
[2018-11-29 19:13] LABS: CLOSTRIDIUM DIFFICILE PCR NEGATIVE (NEGATIVE)
[2018-11-29] MEDS: PANTOPRAZOLE 40MG TAB (PROTONIX) PO SCH (20:30)
[2018-11-29] MEDS: AMITRIPTYLINE 50 MG TAB PO SCH (20:31)
[2018-11-29] MEDS: QUEtiapine FUMARATE 100 MG TAB PO SCH (20:31)
[2018-11-29] MEDS ORDERED: CLOPIDOGREL 75 MG TAB PO SCH (21:00)
[2018-11-29 22:00] VITALS: BP 118/56
[2018-11-30 05:47] LABS: HEMATOCRIT 30.2 % (36.0-47.0); HEMOGLOBIN 9.5 g/dl (12.0-15.5); MEAN CORPUSCULAR HEMOGLOBIN 29.5 pg (27.0-33.0); MEAN CORPUSCULAR HGB CONC 31.5 g/dl (32.0-36.5); MEAN CORPUSCULAR VOLUME 93.8 fl (80.0-96.0); PLATELET COUNT, AUTOMATED 186 10^3/uL (150-450); RED BLOOD COUNT 3.22 10^6/uL (4.00-5.40); WHITE BLOOD COUNT 3.1 10^3/uL (4.0-10.0)
[2018-11-30 06:00] VITALS: BP 114/70
[2018-11-30 06:15] LABS: BLOOD UREA NITROGEN 12 MG/DL (7-18); CALCIUM LEVEL 8.1 MG/DL (8.5-10.1); CARBON DIOXIDE LEVEL 29 MEQ/L (21-32); CHLORIDE LEVEL 109 MEQ/L (98-107); CREATININE FOR GFR 0.67 MG/DL (0.55-1.30); GLOMERULAR FILTRATION RATE > 60.0 (>58); GLUCOSE, FASTING 100 MG/DL (70-100); POTASSIUM SERUM 3.8 MEQ/L (3.5-5.1); SODIUM LEVEL 145 MEQ/L (136-145)
[2018-11-30] MEDS: D5W/0.45% SODIUM CHLORIDE 1,000 ML IV SCH (06:45)
[2018-11-30] MEDS: ACETAMINOPHEN TAB 650MG DOSE (2X325MG) PO PRN (06:48)
[2018-11-30 07:41] LABS: MAGNESIUM LEVEL 1.8 MG/DL (1.8-2.4)
[2018-11-30] MEDS: PANTOPRAZOLE 40MG TAB (PROTONIX) PO SCH (08:30)
[2018-11-30] MEDS: sulfaSALAzine 500 MG TABEC PO SCH (08:30)
[2018-11-30] MEDS: DULoxetine 20 MG CAP (CYMBALTA) PO SCH (08:30)
[2018-11-30] MEDS: valACYclovir HCL 500 MG TAB PO SCH (08:30)
[2018-11-30] MEDS: SUCRALFATE 1 GM TAB PO SCH (08:30)
[2018-11-30] MEDS: POTASSIUM CHLORIDE 10 MEQ SR TABLET PO SCH (08:30)
[2018-11-30] MEDS: levETIRAcetam 250MG TABLET (KEPPRA) PO SCH (08:31)
[2018-11-30] MEDS: GABAPENTIN 300 MG CAP PO SCH (08:31)
[2018-11-30] MEDS ORDERED: VALA500T5 PO (11:06)
[2018-11-30] MEDS ORDERED: SUCR1TA PO (11:06)
[2018-11-30] MEDS ORDERED: PANT40TA3 PO (11:06)
[2018-11-30] MEDS ORDERED: GABA-843 PO (11:06)
--- NOTE | 2018-11-30 13:42 | DS.PDOC ---
Discharge Summary General Date of Admission Nov 25, 2018 at 18:18 Date of Discharge 11/30/18 Primary Care Physician: Minnie Galan Attending Physician: AARON YAN MD Specialist/Consultants Involve: Venancio Robbins Discharge Summary PROCEDURES PERFORMED DURING STAY: 11/26/18 EGD, Dr. Robbins ADMITTING DIAGNOSES: 1. hematochezia & melena 2. Anemia with Hgb 6.5 DISCHARGE DIAGNOSES: 1. Acute blood loss anemia 2. Upper GI Bleed, with nonbleeding duodenal ulcer & gastritis, long-term NSAID use 3. Possible Celiac Disease-labs pending at time of discharge 4. Shingles 5. Chronic diarrhea 6. Mild Hypotension 7. Hypomagnesemia & Hypokalemia Hx of CVA Hx of Ulcerative Colitis Depression vs Bipolar Disorder Hx of cervical cancer s/p chemo-ended Sep 2016 COMPLICATIONS/CHIEF COMPLAINT: Upper Gi Bleed. HISTORY OF PRESENT ILLNESS: 47 yo F came in after she had 2 days of bright red vomiting and black, tarry stools. She states she has had similar episodes a couple of years ago, once when she had a bowel blockage, and the other time when she had her appendix removed. She states she does have a history of stomach ulcers that were found through scopes in the past. Of note, she has been taking two to three nonsteroidal anti-inflammatory drugs (NSAIDs) a day for her back pain. No other complaints. HOSPITAL COURSE: She was started on IV fluids an protonix drip, made NPO. Her hemoglobin was 6.5, she was transfused 2 units PRBCs, responded well with a hemoglobin near 9 the next morning. Due to history of stroke, she was on Plavix, which was stopped on admission. She was also noted to have a painful rash in a dermatomal pattern on the right posterior flank, presumed shingles, for which she was started on Valtrex and gabapentin. She underwent an EGD by Dr. Robbins, which found a nonbleeding duodenal ulcer, and an area suspicious for celiac disease in the duodenum, which was biopsied and showed blunted villi. She was noted to be slightly hypotensive and dizzy, but improved with advancing her diet and IV fluids. She no longer was having melanotic stools or nausea or vomiting, however was having loose diarrhea with up to 7 bowel movements a day, C. difficile testing was negative. Pt stated her diarrhea was normal for her since her cholecystectomy. Per GI recommendations, her Plavix was resumed, in addition to starting Protonix bid and Carafate bid. Her hemoglobin remained stable, and she overall felt back to her baseline. She is noted to be hypokalemic and hypomagnesemic, which are supplemented and returned to normal. At the time of discharge, her celiac blood tests are still pending. She was educated on avoiding NSAIDs, alcohol, tobacco, caffeine, and to follow-up with PCP and GI. DISCHARGE MEDICATIONS: Please see below. ALLERGIES: Please see below. PHYSICAL EXAMINATION ON DISCHARGE: VITAL SIGNS: Please see below. GENERAL: NAD, A&Ox3 HEENT: nc, at, EOMI NECK: supple, no JVD CARDIOVASCULAR EXAMINATION: RRR, normal S1 S2 RESPIRATORY EXAMINATION: CTAB, no w/r/r ABDOMINAL EXAMINATION: soft, nt/nd, normoactive bowel sounds EXTREMITIES: 2+ pulses b/l, no cyanosis or edema SKIN: no visible rash or lesions, warm, dry. 2 macules on rt posterior flank from shingles healing. Infusaport on rt chest wall NEUROLOGICAL EXAMINATION: able to move all extremities, sensation intact LABORATORY DATA: Please see below. IMAGING: * 11/25/2018 CXR: No active disease. * 11/25/2018 CTA: No CT evidence of pulmonary embolism or aortic dissection. No abnormal lung opacities identified and no evidence of adenopathy. * 11/25/2018 CT abdomen and pelvis: Status-post cholecystectomy. Common bile duct is more dilated than on the prior study, currently measuring 16 mm in maximum diameter, previously 12 mm. No definite common bile duct stone is seen. No other acute abnormality is seen. * 11/25/2018 abdominal ultrasound: 1. Status post cholecystectomy. 2. Dilated intrahepatic biliary radicals and common bile duct measuring 1.6 cm maximally. Degree of dilatation is atypical for a post cholecystectomy patient. Distal common bile duct obscured by overlying bowel gas. No obstructing mass or choledocholithiasis demonstrated. Correlation with biliary chemistries suggested. 3. There is a diffuse decrease in hepatic parenchymal density, consistent with fatty infiltration. 4. Right kidney measures 9.9 x 5.1 x 4.1 cm. Focal parenchymal thinning in the upper anterior portion of the right kidney. Findings related to prior infection or vascular compromise. * 11/26/2018 EGD:Small hiatal hernia. Flattened mucosa was found in the duodenum, suspicious for celiac disease. Biopsied. The examination was ot herwise normal. One non-bleeding duodenal ulcer. The examination was otherwise normal. Biopsies were taken with a cold forceps for Helicobacter pylori testing. PROGNOSIS: good ACTIVITY: As tolerated. DIET: as tolerated DISPOSITION: home DISCHARGE INSTRUCTIONS: 1. Follow up with PCP within 1 week & GI within 1-2 weeks 2. NEW MEDS: Gabapentin, Valtrex, Protonix 40 MG twice a day, Carafate 1 g twice a day 3. Return to ER for any emergency 4. Avoid NSAIDs, tobacco, alcohol, caffeine. DISCHARGE CONDITION: Stable. TIME SPENT ON DISCHARGE: Greater than 35 minutes. Vital Signs/I&Os Vital Signs Date Time Temp Pulse Resp B/P (MAP) Pulse Ox O2 Delivery O2 Flow Rate FiO2 11/30/18 06:00 96.7 71 16 114/70 (85) 99 11/26/18 15:52 Room Air I&O- Last 24 Hours up to 6 AM 11/30/18 06:00 Intake Total 3090 ml Output Total 2600 ml Balance 490 ml Laboratory Data Labs 24H Laboratory Tests 2 11/29/18 18:05: Stool Clostridium difficile Result NEGATIVE, Clostridium difficile (PCR)(LAB) NEGATIVE 11/30/18 05:34: Nucleated Red Blood Cells % (auto) 0.0, Anion Gap 7L, Glomerular Filtration Rate > 60.0, Blood Urea Nitrogen 12, Creatinine 0.67, Sodium Level 145, Potassium Level 3.8, Chloride Level 109H, Carbon Dioxide Level 29, Calcium Level 8.1L, Magnesium Level 1.8 CBC/BMP Laboratory Tests 11/30/18 05:34 Red Blood Count 3.22 L, Mean Corpuscular Volume 93.8, Mean Corpuscular Hemoglobin 29.5, Mean Corpuscular Hemoglobin Concent 31.5 L, Red Cell Distribution Width 14.6 H, Calcium Level 8.1 L Microbiology Microbiology 11/27/18 Stool Occult Blood (FRITZ) - Final, Complete Discharge Medications Scheduled Amitriptyline HCl (Amitriptyline HCl) 50 Mg Tab, 50 MG PO QHS, (Reported) Clopidogrel Bisulfate (Plavix) 75 Mg Tab, 75 MG PO QHS, (Reported) Cyanocobalamin (Cyanocobalamin) 1,000 Mcg/1 Ml Inj, 1,000 MCG IM QMONTH, (Reported) Duloxetine Hcl (Duloxetine HCl) 20 Mg Cap, 20 MG PO DAILY, (Reported) Eslicarbazepine Acetate (Aptiom) 800 Mg Tab, 800 MG PO QHS, (Reported) Gabapentin (Gabapentin) 300 Mg Cap, 300 MG PO BID Levetiracetam (Keppra) 500 Mg Tab, 500 MG PO BID, (Reported) Pantoprazole Sodium (Pantoprazole Sodium) 40 Mg Tab, 40 MG PO BID Potassium Chloride (Klor-Con M20) 20 Meq Tabcr, 20 MEQ PO DAILY, (Reported) Quetiapine Fumerate (Seroquel) 100 Mg Tab, 100 MG PO QHS, (Reported) Sucralfate (Carafate) 1 Gm Tab, 1 GM PO BID@0730,1730 Sulfasalazine (Sulfasalazine) 500 Mg Tab, 500 MG PO TID, (Reported) Valacyclovir HCl (Valacyclovir HCl) 500 Mg Tab, 1,000 MG PO BID Valerian Root Extract (Valerian Root Plus) 1 Cap Cap, 50 MG PO QHS, (Reported) Allergies Coded Allergies: Wheat (Verified Allergy, Unknown, 11/25/18) CELIAC GME ATTESTATION GME ATTESTATION My faculty preceptor for this patient encounter was physically present during the encounter and was fully available. All aspects of the patient interview, examination, medical decision making process, and medical care plan development were reviewed and approved by the faculty preceptor. The faculty preceptor is aware and concurs with the plan as stated in the body of this note and will attest to such by his/her cosignature. KENZIE PATEL DO Nov 30, 2018 13:42
== END 2018-11-30 12:47 | disposition home or self-care (01) | DRG 378 ==
LOC: M ED 14:01 → M ED INP 18:18 → M MSPAV 20:42
PROVIDERS: ADMIT Internal Medicine; ATTEND Internal Medicine
PROC: 0DB98ZX Excision of Duodenum, Via Natural or Artificial Opening Endoscopic, Diagnostic (ICD-10-PCS; 2018-11-26)
PROC: 0DB78ZX Excision of Stomach, Pylorus, Via Natural or Artificial Opening Endoscopic, Diagnostic (ICD-10-PCS; principal; 2018-11-26 08:11)
DX: K92.2 Gastrointestinal hemorrhage, unspecified (principal); K51.90 Ulcerative colitis, unspecified, without complications; K50.90 Crohn's disease, unspecified, without complications; D62 Acute posthemorrhagic anemia; E87.0 Hyperosmolality and hypernatremia; K44.9 Diaphragmatic hernia without obstruction or gangrene; E11.9 Type 2 diabetes mellitus without complications; K26.9 Duodenal ulcer, unspecified as acute or chronic, without hemorrhage or perforation; F32.9 Major depressive disorder, single episode, unspecified; G40.909 Epilepsy, unspecified, not intractable, without status epilepticus; I95.9 Hypotension, unspecified; B02.9 Zoster without complications; E87.6 Hypokalemia; E83.42 Hypomagnesemia; Z85.41 Personal history of malignant neoplasm of cervix uteri; Z92.21 Personal history of antineoplastic chemotherapy; Z79.02 Long term (current) use of antithrombotics/antiplatelets; Z79.1 Long term (current) use of non-steroidal anti-inflammatories (NSAID); Z79.899 Other long term (current) drug therapy; Z90.49 Acquired absence of other specified parts of digestive tract; Z86.73 Personal history of transient ischemic attack (TIA), and cerebral infarction without residual deficits

== ENCOUNTER → 2018-12-09 | Outpatient (REF) | payer MEDICARE, OTHER ==
[~2018-12-09] MED LIST changes: +CYAN1000VL IM; +GABA-843 PO; +OMEP20CA3 PO; +SUCR1TA PO; +VALA500T5 PO
[2018-12-09 13:53] LABS: FOLATE 10.8 NG/ML; MAGNESIUM LEVEL 1.9 MG/DL (1.8-2.4); THYROID STIMULATING HORMONE 0.817 uIU/ML (0.358-3.740)
== END ==
LOC: M LAB REF 12:56
PROVIDERS: ATTEND Family Medicine
DX: E53.8 Deficiency of other specified B group vitamins (principal)

== ENCOUNTER → 2018-12-13 | Outpatient (CLI) | payer MEDICARE, OTHER ==
--- NOTE | 2018-12-13 19:16 | REPMRS ---
Patient History The patient states she had a clinical breast exam in 11/2018. Patient is postmenopausal, has history of other cancer at age 45, and had previous chemotherapy at age 45. Family history of ovarian cancer in maternal aunt, ovarian cancer in maternal aunt, ovarian cancer in maternal aunt, ovarian cancer in maternal aunt, ovarian cancer in maternal aunt. No Hormone Replacement Therapy Digital Woman Screen Mammo: December 13, 2018 - Exam #: [id number] Bilateral CC and MLO view(s) were taken. Technologist: Kallie Palomino, Technologist Prior study comparison: 2016, bilateral digital woman screen mammo, performed at [facility]. FINDINGS: There are scattered fibroglandular densities. There has been no change in the appearance of the mammogram from the prior studies. There is a mild amount of residual fibroglandular tissue which is fairly symmetric. There is no interval development of dominant mass, architectural distortion, or clustered microcalcification suggestive of malignancy. Port catheter overlies the right axilla. 3-D tomosynthesis shows no additional findings. The patient's Tyrer-Cuzick lifetime risk assessment score is 7.9 %. No significant changes when compared with prior studies. Assessment: BI-RADS/ACR category 1 mammogram. Negative Mammogram. Recommendation Routine screening mammogram in 1 year (for women over age 40). This mammogram was interpreted with the aid of an FDA-approved computer-aided dectection system. A. Negative x-ray reports should not delay biopsy if a dominant or clinically suspicious mass is present. B. Four to eight percent of cancers are not identified by mammography. C. Adenosis and dense breast may obscure an underlying neoplasm. Electronically Signed By: Jose Beck MD 12/13/18 [id number]
== END ==
LOC: M WHC 12:18
PROVIDERS: ATTEND Nurse Practitioner Family
DX: Z12.31 Encounter for screening mammogram for malignant neoplasm of breast (principal)

== ENCOUNTER 2018-12-27 15:48 | Emergency (ER) | payer MEDICARE, OTHER ==
[~2018-12-27] VITALS: Ht 167.6 cm; Wt 61.4 kg
[2018-12-27 17:22] LABS: BASO % 0.2 % (0.0-1.0); EOS % 0.3 % (0.0-3.0); HEMATOCRIT 40.5 % (36.0-47.0); HEMOGLOBIN 13.1 g/dl (12.0-15.5); LYMPH # 0.7 10^3/uL (1.5-4.5); LYMPH % 11.3 % (24.0-44.0); MEAN CORPUSCULAR HEMOGLOBIN 28.6 pg (27.0-33.0); MEAN CORPUSCULAR HGB CONC 32.3 g/dl (32.0-36.5); MEAN CORPUSCULAR VOLUME 88.4 fl (80.0-96.0); MONO # 0.5 10^3/uL (0.0-0.8); MONO % 7.4 % (0.0-5.0); NEUTROPHILS # 4.9 10^3/uL (1.8-7.7); NEUTROPHILS % 80.5 % (36.0-66.0); PLATELET COUNT, AUTOMATED 141 10^3/uL (150-450); RED BLOOD COUNT 4.58 10^6/uL (4.00-5.40); WHITE BLOOD COUNT 6.1 10^3/uL (4.0-10.0)
[2018-12-27] MEDS ORDERED: NS 1,000 ML IV SCH (17:54)
[2018-12-27] MEDS ORDERED: ONDANSETRON 4MG/2ML VIAL (J2405) IV ONE (18:00)
[2018-12-27] MEDS ORDERED: PANTOPRAZOLE 40MG INJ (PROTONIX) (C9113) IV ONE (18:00)
[2018-12-27] MEDS ORDERED: GI COCKTAIL 50ML BTL(HYOSCYAMINE/MAALOX/LIDOCAINE VISCOUS)(1:3:1) PO ONE (18:00)
[2018-12-27 18:22] LABS: ALBUMIN 4.1 GM/DL (3.2-5.2); ALT/SGPT 30 U/L (12-78); BILIRUBIN,DIRECT < 0.1 MG/DL (0.0-0.2); BILIRUBIN,TOTAL 0.2 MG/DL (0.2-1.0); BLOOD UREA NITROGEN 17 MG/DL (7-18); CALCIUM LEVEL 8.9 MG/DL (8.5-10.1); CARBON DIOXIDE LEVEL 30 MEQ/L (21-32); CHLORIDE LEVEL 103 MEQ/L (98-107); CREATININE FOR GFR 0.65 MG/DL (0.55-1.30); GLOMERULAR FILTRATION RATE > 60.0 (>58); GLUCOSE, FASTING 115 MG/DL (70-100); LIPASE 126 U/L (73-393); POTASSIUM SERUM 3.8 MEQ/L (3.5-5.1); SODIUM LEVEL 140 MEQ/L (136-145); TOTAL PROTEIN 7.6 GM/DL (6.4-8.2)
[2018-12-27] MEDS: GASTROGRAFIN SOLUTION 30ML PO SCH ×2 (18:25→19:03)
[2018-12-27] MEDS ORDERED: ISOVUE-370 76% 100ML VIAL (Q9967) As Ordered ONE (19:51)
--- NOTE | 2018-12-27 20:51 | REPVR ---
EXAM: CT Abdomen and Pelvis With Contrast EXAM DATE/TIME: 12/27/2018 7:58 PM CLINICAL HISTORY: 48 years old, female; Pain; Abdominal pain; Generalized; Additional info: Abd pain, vomiting TECHNIQUE: Axial computed tomography images of the abdomen and pelvis with intravenous contrast. All CT scans at this facility use at least one of these dose optimization techniques: automated exposure control; mA and/or kV adjustment per patient size (includes targeted exams where dose is matched to clinical indication); or iterative reconstruction. Coronal and sagittal reformatted images were created and reviewed. CONTRAST: Contrast Material: 100 ml of ISOVUE 370; Contrast Route: IV COMPARISON: CT ABD/PEL W/IV CONTRAST ONLY 11/25/2018 5:05 PM FINDINGS: Lower thorax: No acute findings. ABDOMEN: Liver: There is a diffuse decrease in hepatic parenchymal density, consistent with fatty infiltration. Gallbladder and bile ducts: There has been a cholecystectomy. Prominent common bile duct measures up to 11 millimeters, stable in comparison to the prior study. No mass or choledocholithiasis. Pancreas: Normal. No ductal dilation. Spleen: Normal. No splenomegaly. Adrenals: Normal. No mass. Kidneys and ureters: Normal. No hydronephrosis. Stomach and bowel: Moderate gastric distention. Clinical correlation to exclude gastroparesis or gastric outlet obstruction suggested. There is increased fluid demonstrated in the colon consistent with diarrhea. No mass demonstrated. Clinical correlation needed. Appendix: No evidence of appendicitis. PELVIS: Bladder: Unremarkable as visualized. Reproductive: There has been a hysterectomy. ABDOMEN and PELVIS: Intraperitoneal space: Normal. No free air. No significant fluid collection. Bones/joints: Mild central spinal stenosis at L4-5. Soft tissues: Unremarkable. Vasculature: Normal. No abdominal aortic aneurysm. Lymph nodes: Normal. No enlarged lymph nodes. IMPRESSION: 1. There has been a cholecystectomy. Prominent common bile duct measures up to 11 millimeters, stable in comparison to the prior study. No mass or choledocholithiasis. 2. There is a diffuse decrease in hepatic parenchymal density, consistent with fatty infiltration. 3. Moderate gastric distention. Clinical correlation to exclude gastroparesis or gastric outlet obstruction suggested. 4. There has been a hysterectomy. 5. There is increased fluid demonstrated in the colon consistent with diarrhea. No mass demonstrated. Clinical correlation needed. Electronically signed by: Waldemar Ruiz On 12/27/2018 20:51:00 PM
[2018-12-27] MEDS ORDERED: SUCR1TA PO (21:52)
[2018-12-27] MEDS ORDERED: PANT40TA3 PO (21:52)
[2018-12-27] MEDS ORDERED: PEPC1TAB5 PO (21:52)
[2018-12-27] MEDS ORDERED: FAMOTIDINE 20 MG TAB PO ONE (22:00)
[2018-12-27] MEDS ORDERED: SUCRALFATE 1 GM TAB PO ONE (22:00)
[2018-12-27 22:31] VITALS: BP 117/65
--- NOTE | 2018-12-29 11:02 | ED PDOC ---
Post-Departure Follow-Up perla armijo and jamey faxed formal report of ct abd/p for fu Richard Marrufo MD Dec 29, 2018 11:02
== END 2018-12-27 22:34 | disposition home or self-care (01) ==
LOC: M ED 15:48
DX: R10.13 Epigastric pain (principal); D64.9 Anemia, unspecified; K50.919 Crohn's disease, unspecified, with unspecified complications; K51.90 Ulcerative colitis, unspecified, without complications; Z90.49 Acquired absence of other specified parts of digestive tract; Z79.02 Long term (current) use of antithrombotics/antiplatelets; Z79.899 Other long term (current) drug therapy; Z91.018 Allergy to other foods
CPT/HCPCS: 36415; 74177; 80048; 80076; 83690; 85025; 93041; 96361; 96374; 96375; 99285; C9113; J2405; Q9963; Q9967

== ENCOUNTER → 2019-01-13 | Outpatient (REF) | payer MEDICARE, OTHER ==
[~2019-01-13] MED LIST changes: +PEPC1TAB5 PO
[2019-01-13 14:31] LABS: HEMATOCRIT 35.4 % (36.0-47.0); MEAN CORPUSCULAR HEMOGLOBIN 27.8 pg (27.0-33.0); MEAN CORPUSCULAR HGB CONC 31.1 g/dl (32.0-36.5); MEAN CORPUSCULAR VOLUME 89.6 fl (80.0-96.0); PLATELET COUNT, AUTOMATED 179 10^3/uL (150-450); RED BLOOD COUNT 3.95 10^6/uL (4.00-5.40); WHITE BLOOD COUNT 2.4 10^3/uL (4.0-10.0)
[2019-01-13 15:04] LABS: ALT/SGPT 22 U/L (12-78); BILIRUBIN,TOTAL 0.2 MG/DL (0.2-1.0); BLOOD UREA NITROGEN 10 MG/DL (7-18); CALCIUM LEVEL 8.7 MG/DL (8.5-10.1); CARBON DIOXIDE LEVEL 29 MEQ/L (21-32); CHLORIDE LEVEL 107 MEQ/L (98-107); CREATININE FOR GFR 0.74 MG/DL (0.55-1.30); GLOMERULAR FILTRATION RATE > 60.0 (>58); GLUCOSE, FASTING 96 MG/DL (70-100); POTASSIUM SERUM 3.8 MEQ/L (3.5-5.1); SODIUM LEVEL 142 MEQ/L (136-145); THYROID STIMULATING HORMONE 0.646 uIU/ML (0.358-3.740); TOTAL PROTEIN 7.2 GM/DL (6.4-8.2)
[2019-01-13 15:16] LABS: VITAMIN B12 LEVEL 326 PG/ML
[2019-01-13 15:17] LABS: FOLATE 14.5 NG/ML
[2019-01-16 14:21] LABS: H PYLORI SERUM QUANT IgG ABY 0.19 (0.00-0.79); LEVETIRACETAM (KEPPRA) 27.4 ug/mL (10.0-40.0)
== END ==
LOC: M LAB REF 13:47
PROVIDERS: ATTEND Family Medicine
DX: R53.83 Other fatigue (principal); D72.818 Other decreased white blood cell count; E53.8 Deficiency of other specified B group vitamins; G40.89 Other seizures; K27.9 Peptic ulcer, site unspecified, unspecified as acute or chronic, without hemorrhage or perforation

== ENCOUNTER 2019-01-24 12:28 | Emergency (ER) | payer MEDICARE, OTHER ==
[~2019-01-24] VITALS: Ht 167.6 cm; Wt 59.1 kg
[~2019-01-24 12:28] MED LIST changes: -NAPR-50 PO; +NAPR-837 PO
[2019-01-24] MEDS ORDERED: ESTR0.1C5 (12:42)
[2019-01-24] MEDS ORDERED: NS 1,000 ML IV ONE ×2 (12:45→14:15)
[2019-01-24 13:06] LABS: BASO % 0.1 % (0.0-1.0); HEMATOCRIT 41.7 % (36.0-47.0); HEMOGLOBIN 13.6 g/dl (12.0-15.5); LYMPH # 0.6 10^3/uL (1.5-4.5); LYMPH % 6.3 % (24.0-44.0); MEAN CORPUSCULAR HEMOGLOBIN 27.6 pg (27.0-33.0); MEAN CORPUSCULAR HGB CONC 32.6 g/dl (32.0-36.5); MEAN CORPUSCULAR VOLUME 84.8 fl (80.0-96.0); MONO # 0.7 10^3/uL (0.0-0.8); MONO % 7.5 % (0.0-5.0); NEUTROPHILS # 7.5 10^3/uL (1.8-7.7); NEUTROPHILS % 85.8 % (36.0-66.0); PLATELET COUNT, AUTOMATED 260 10^3/uL (150-450); RED BLOOD COUNT 4.92 10^6/uL (4.00-5.40); WHITE BLOOD COUNT 8.8 10^3/uL (4.0-10.0)
[2019-01-24] MEDS ORDERED: PROMETHAZINE INJ 25 MG/ML VIAL (J2550) IV ONE (13:30)
[2019-01-24 13:35] LABS: ALBUMIN 4.3 GM/DL (3.2-5.2); ALT/SGPT 29 U/L (12-78); BILIRUBIN,DIRECT < 0.1 MG/DL (0.0-0.2); BILIRUBIN,TOTAL 0.4 MG/DL (0.2-1.0); BLOOD UREA NITROGEN 24 MG/DL (7-18); CALCIUM LEVEL 9.7 MG/DL (8.5-10.1); CARBON DIOXIDE LEVEL 24 MEQ/L (21-32); CHLORIDE LEVEL 92 MEQ/L (98-107); CREATININE FOR GFR 1.33 MG/DL (0.55-1.30); GLOMERULAR FILTRATION RATE 45.5 (>58); GLUCOSE, FASTING 175 MG/DL (70-100); LIPASE 145 U/L (73-393); POTASSIUM SERUM 3.6 MEQ/L (3.5-5.1); SODIUM LEVEL 134 MEQ/L (136-145); TOTAL PROTEIN 8.5 GM/DL (6.4-8.2)
--- NOTE | 2019-01-24 15:52 | REP ---
Clinical: Vomiting and abdominal pain. Technique: Upright view of the chest with supine and upright views of the abdomen and pelvis. Findings: Frontal upright view of the chest demonstrates no acute cardiopulmonary process or free air below the diaphragm to suspect pneumoperitoneum. Aoalmx-D-Owkv with tip in the SVC. Supine and upright views of the abdomen and pelvis demonstrate nonspecific bowel gas pattern without obstruction or perforation. No organomegaly. No abnormal calcifications. Skeletal structures normal for age. Impression: Nonspecific bowel gas pattern. Electronically Signed by Geraldo Geronimo MD 01/24/2019 03:44 P
[2019-01-24] MEDS ORDERED: ONDANSETRON 4 MG ORAL DISINTEGRATING TAB (Q0162 PER 1MG) PO ONE ×2 (17:15→18:30)
[2019-01-24] MEDS ORDERED: ISOVUE-370 76% 100ML VIAL (Q9967) As Ordered ONE (17:30)
--- NOTE | 2019-01-24 17:57 | REP ---
Clinical: Intractable vomiting and abdominal pain. Technique: Axial contrast enhanced images from the lung bases to the pubic symphysis with coronal and sagittal re-formations using 100 ml Isovue 370 intravenous contrast material. Comparison: 12/27/2018. Findings: Lung bases are clear. Visualized portions of the heart and pericardium appear normal. Mild mucosal thickening to the distal esophagus may warrant outpatient esophagram study. Fatty infiltration of the liver noted without focal hepatic lesion. Spleen, pancreas, bilateral adrenal glands and kidneys are normal. Evidence of prior cholecystectomy noted. The enteric system is without obstruction or acute inflammatory process moderate fluid-filled loops of small large bowel may reflect a mild enteritis. Pelvis demonstrates normal bladder and age-appropriate uterus/adnexa. No ascites. No free air. No adenopathy. Abdominal aorta without aneurysm or dissection. Musculoskeletal structures intact. Impression: 1. Cannot exclude a mild enteritis with fluid-filled loops of small and large bowel. 2. No further acute abdominopelvic pathology appreciated. Electronically Signed by Geraldo Geronimo MD 01/24/2019 05:49 P
[2019-01-24] MEDS ORDERED: ZOFR4TAB16 PO (18:19)
[2019-01-24 18:21] VITALS: BP 133/71
== END 2019-01-24 18:29 | disposition home or self-care (01) ==
LOC: M ED 12:28
DX: K52.9 Noninfective gastroenteritis and colitis, unspecified (principal); F33.9 Major depressive disorder, recurrent, unspecified; F41.9 Anxiety disorder, unspecified; Z86.73 Personal history of transient ischemic attack (TIA), and cerebral infarction without residual deficits; Z98.890 Other specified postprocedural states; Z91.018 Allergy to other foods; Z79.890 Hormone replacement therapy; Z79.818 Long term (current) use of other agents affecting estrogen receptors and estrogen levels
CPT/HCPCS: 74021; 74177; 80048; 80076; 83690; 85025; 96374; 99284; Q0162; Q9967

== ENCOUNTER → 2019-02-20 | Outpatient (REF) | payer OTHER ==
[~2019-02-20] MED LIST changes: +DULO1CAP3 PO; +ESTR0.1C5; +VALE500C2 PO; +ZOFR4TAB16 PO
[2019-02-20 16:55] LABS: BASO % 0.3 % (0.0-1.0); HEMATOCRIT 28.6 % (36.0-47.0); LYMPH # 0.7 10^3/uL (1.5-4.5); LYMPH % 24.3 % (24.0-44.0); MEAN CORPUSCULAR HEMOGLOBIN 27.7 pg (27.0-33.0); MONO # 0.4 10^3/uL (0.0-0.8); MONO % 13.9 % (0.0-5.0); NEUTROPHILS # 1.8 10^3/uL (1.8-7.7); NEUTROPHILS % 61.2 % (36.0-66.0); PLATELET COUNT, AUTOMATED 216 10^3/uL (150-450); RED BLOOD COUNT 2.89 10^6/uL (4.00-5.40); WHITE BLOOD COUNT 2.9 10^3/uL (4.0-10.0)
[2019-02-20 17:28] LABS: ALBUMIN 3.5 GM/DL (3.2-5.2); ALT/SGPT 19 U/L (12-78); BILIRUBIN,TOTAL 0.5 MG/DL (0.2-1.0); BLOOD UREA NITROGEN 9 MG/DL (7-18); CALCIUM LEVEL 8.3 MG/DL (8.5-10.1); CARBON DIOXIDE LEVEL 31 MEQ/L (21-32); CHLORIDE LEVEL 108 MEQ/L (98-107); CREATININE FOR GFR 0.73 MG/DL (0.55-1.30); FREE T4 1.09 NG/DL (0.76-1.46); GLOMERULAR FILTRATION RATE > 60.0 (>58); GLUCOSE, FASTING 80 MG/DL (70-100); POTASSIUM SERUM 3.4 MEQ/L (3.5-5.1); SODIUM LEVEL 142 MEQ/L (136-145); TOTAL PROTEIN 6.9 GM/DL (6.4-8.2)
[2019-02-20 17:51] LABS: FOLATE 8.3 NG/ML; VITAMIN B12 LEVEL 363 PG/ML
[2019-02-24 06:20] LABS: HEMOGLOBIN A1c 4.2 %
== END ==
LOC: M SFHCLERA 10:33
PROVIDERS: ATTEND Family Medicine
DX: M79.2 Neuralgia and neuritis, unspecified (principal); D64.9 Anemia, unspecified
CPT/HCPCS: 80053; 82607; 82746; 83036; 84439; 84443; 85025; G0463

== ENCOUNTER 2019-03-03 07:01 | Day surgery (SDC) | payer MEDICARE, OTHER ==
[~2019-03-03] VITALS: Ht 167.6 cm; Wt 59.8 kg
[~2019-03-03 07:01] MED LIST changes: +LIDOCAINE 2% INJ 100 MG/5 ML SDV (FOR ANES.) As Ordered ONE; +NS 1,000 ML IV ONE; +PROPOFOL 200 MG/20 ML VIAL As Ordered ONE
--- NOTE | 2019-03-03 08:21 | ROOR ---
Patient Name: Angelia Elizabeth Procedure Date: 03/03/2019 7:57 AM Date of : 1970 Age: 48 Room: [facility] Gender: Female Note Status: Finalized Procedure: Upper GI endoscopy Indications: Epigastric abdominal pain Providers: Venancio Robbins MD Referring MD: Uziel REINA MD Requesting Provider: Medicines: Monitored Anesthesia Care Complications: No immediate complications. Procedure: Pre-Anesthesia Assessment: - The heart rate, respiratory rate, oxygen saturations, blood pressure, adequacy of pulmonary ventilation, and response to care were monitored throughout the procedure. The Endoscope was introduced through the mouth, and advanced to the pylorus. The upper GI endoscopy was accomplished without difficulty. The patient tolerated the procedure well. Findings: The Z-line was regular and was found 35 cm from the incisors. A small hiatal hernia was present. No other significant abnormalities were identified in a careful examination of the stomach. An acquired benign-appearing, intrinsic severe stenosis was found in the first portion of the duodenum and was non-traversed. Impression: - Z-line regular, 35 cm from the incisors. - Small hiatal hernia. - Acquired duodenal stenosis. - No specimens collected. - The examination was otherwise normal. Recommendation: - Patient has a contact number available for emergencies. The signs and symptoms of potential delayed complications were discussed with the patient. Return to normal activities tomorrow. Written discharge instructions were provided to the patient. - Discharge patient to home. - Follow an antireflux regimen. - Continue present medications. - Do an upper GI series at appointment to be scheduled. - Check hemogram with white blood cell count and platelets. - The findings and recommendations were discussed with the patient's family. Venancio Robbins MD Venancio Robbins MD 03/03/2019 8:21:21 AM Electronically signed by Venancio Robbins MD Number of Addenda: 0 Note Initiated On: 03/03/2019 7:57 AM Estimated Blood Loss: Estimated blood loss: none.
[2019-03-03 08:45] VITALS: BP 106/59
[2019-03-03 09:20] LABS: HEMATOCRIT 27.2 % (36.0-47.0); HEMOGLOBIN 7.8 g/dl (12.0-15.5); MEAN CORPUSCULAR HEMOGLOBIN 27.7 pg (27.0-33.0); MEAN CORPUSCULAR HGB CONC 28.7 g/dl (32.0-36.5); MEAN CORPUSCULAR VOLUME 96.5 fl (80.0-96.0); PLATELET COUNT, AUTOMATED 229 10^3/uL (150-450); RED BLOOD COUNT 2.82 10^6/uL (4.00-5.40); WHITE BLOOD COUNT 2.4 10^3/uL (4.0-10.0)
[2019-03-03 09:35] LABS: ALBUMIN 3.7 GM/DL (3.2-5.2); ALT/SGPT 20 U/L (12-78); BILIRUBIN,TOTAL 0.4 MG/DL (0.2-1.0); BLOOD UREA NITROGEN 11 MG/DL (7-18); CALCIUM LEVEL 8.6 MG/DL (8.5-10.1); CARBON DIOXIDE LEVEL 28 MEQ/L (21-32); CHLORIDE LEVEL 107 MEQ/L (98-107); CREATININE FOR GFR 0.72 MG/DL (0.55-1.30); GLOMERULAR FILTRATION RATE > 60.0 (>58); GLUCOSE, FASTING 80 MG/DL (70-100); IRON (FE) 36 UG/DL (50-170); PERCENT SATURATION 8.8 % (13.2-45.0); POTASSIUM SERUM 3.6 MEQ/L (3.5-5.1); SODIUM LEVEL 140 MEQ/L (136-145); TOTAL IRON BINDING CAPACITY 411 UG/DL (250-450); TOTAL PROTEIN 6.6 GM/DL (6.4-8.2)
[2019-03-03] MEDS ORDERED: E-Z-PAQUE 96% w/w SUSP 176GM BTL As Ordered ONE (11:02)
[2019-03-03] MEDS ORDERED: E-Z-HD 98% w/w 340GM SUSP BTL As Ordered ONE (11:02)
[2019-03-03] MEDS ORDERED: E-Z-GAS II EFFERVESCENT PACKET (SODIUM BICARB./CITRIC ACID/SIMETHICONE) As Ordered ONE (11:02)
--- NOTE | 2019-03-03 19:18 | REP ---
Examination Requested: Upper G.I. Series With KUB Reason For Exam: Pyloric obstruction Upper GI Air Contrast The procedure was performed by KASSY Ponce, under the direct supervision of Dr. Villegas. The images were reviewed with Dr. Villegas. The auto parts professional film shows no organomegaly or pathological masses. The intestinal gas pattern appears normal. Multiple surgical clips are noted in the central abdomen, most likely correlating with the patients history of intestinal surgery. Liquid barium and gas producing crystals were given in the erect position as well as liquid barium in the prone oblique position in order to perform a double contrast upper GI examination. The oral and pharyngeal stages of deglutition were unremarkable. Esophageal transport is efficient and there is no esophagitis, stricture, or mucosal ring noted. There is no hiatal hernia. No gastroesophageal reflux was appreciated throughout the course of this exam. The stomach salmon are normally outlined. A focally thickened fold measuring 14 mm is noted in the gastric cardia, and appears to be smoothly marginated, this is of uncertain significance. No correlate is noted on the CT dated 01/24/2019. The duodenal salmon are normally outlined. The mucosal folds are smooth and regular. There is no duodenitis, peptic ulcer disease, or neoplasm noted. The visualized portion of the proximal small bowel appears normal in course and caliber. Impression; 1. Focally thickened fold measuring 14 mm in the gastric cardia 1.0 minutes of fluoroscopy time was utilized for this procedure. Reviewed by KASSY Cabrera 03/03/2019 01:43 P Electronically Signed by Sunil Villegas MD 03/03/2019 07:10 P
== END 2019-03-03 11:00 | disposition home or self-care (01) ==
LOC: M OPP 07:01
PROVIDERS: ATTEND Internal Medicine Gastroenterology
DX: K44.9 Diaphragmatic hernia without obstruction or gangrene (principal); K31.5 Obstruction of duodenum; R10.13 Epigastric pain

== ENCOUNTER → 2019-03-25 | Outpatient (CLI) | payer MEDICARE, OTHER ==
[~2019-03-25] MED LIST changes: -LIDOCAINE 2% INJ 100 MG/5 ML SDV (FOR ANES.) As Ordered ONE; -NS 1,000 ML IV ONE; -PROPOFOL 200 MG/20 ML VIAL As Ordered ONE
--- NOTE | 2019-03-26 01:18 | REP ---
Clinical: Chronic left knee pain Technique: AP, lateral, bilateral oblique and sunrise views. Findings: The osseous structures and joint spaces are intact and normal. There is no evidence for acute fracture or dislocation. No joint effusion is appreciated. Surrounding soft tissues are unremarkable. No subcutaneous emphysema or radiodense foreign body. Impression: Normal age-appropriate left knee examination. No significant degenerative changes. Electronically Signed by Geraldo Geronimo MD 03/26/2019 01:09 A
--- NOTE | 2019-03-26 01:19 | REP ---
Clinical: Chronic left hip pain. Technique: Neutral and frog lateral views of the left hip. Findings: No acute fracture dislocation. No significant arthritic degenerative changes noted. Surrounding soft tissues are unremarkable. Impression: Age-appropriate left hip radiographs. Electronically Signed by Geraldo Geronimo MD 03/26/2019 01:10 A
== END ==
LOC: M LRY 15:12
PROVIDERS: ATTEND Family Medicine
DX: M25.562 Pain in left knee (principal); M25.252 Flail joint, left hip
CPT/HCPCS: 73502; 73564; G0463

== ENCOUNTER → 2019-06-18 | Outpatient (CLI) | payer MEDICARE, OTHER ==
[~2019-06-18] MED LIST changes: -DULO1CAP PO; -DULO1CAP3 PO; +DULO1CAP4 PO; +DULO1CAP6 PO; +GASTROGRAFIN SOLUTION 30ML (Q9963) As Ordered ONE; +ISOVUE-370 76% 100ML VIAL (Q9967) As Ordered ONE; -OMEP20CA3 PO; +OMEP20CA4 PO
--- NOTE | 2019-06-18 17:32 | REP ---
CT chest with IV contrast: History: Carcinoma of the cervix. High-risk cervical cancer stage II, rule out metastasis. Comparison chest CT study November 25, 2018. CT contrast dose: 100 ml of intravenous Isovue 370. CT findings: Digital preliminary optical engineering technician radiograph is unremarkable. There is a new 0.9 cm somewhat spiculated appearing nodular density in the right middle lobe projected on page 49 of 91 in series 204 of today's study. No other pulmonary nodular opacity is seen. No infiltrate is observed. No hilar or mediastinal mass or adenopathy is seen. Lung redmond are otherwise clear. No bony destructive lesion is appreciated. There is a right sided Gokwna-A-Pddm catheter via the internal jugular vein with its tip in the superior vena cava. Impression: There is a new 9 mm ill-defined nodule in the right middle lobe. Metastatic pulmonary disease cannot be excluded. Qptzav-S-Upvl catheter. Otherwise no active disease. Electronically Signed by Sunil Villegas MD 06/18/2019 07:23 P
--- NOTE | 2019-06-18 17:36 | REP ---
CT abdomen and pelvis with IV and oral contrast: History: Cervical carcinoma. High-risk. Rule out metastasis. New vaginal obstruction. The patient gives a prior history of partial colectomy and small bowel resection. Comparison CT study January 24, 2019. CT contrast dose: 100 ml of intravenous Isovue 370. CT findings: There is mild diffuse fatty infiltration of the liver. No focal liver mass lesion is appreciated. Gallbladder surgically absent. No biliary ductal dilation is observed. No adrenal lesion is seen. Spleen is homogeneous in texture. There is a granulomatous calcification in the posterior aspect of the liver right hepatic lobe which is unchanged. No pancreatic abnormalities observed. Kidneys enhance symmetrically and are morphologically intact. No retroperitoneal adenopathy is seen. There is an anastomotic suture line visible in the loop of ileum as before. This anastomotic loop is slightly dilated but there is no evidence of obstruction. The ileocecal valve and terminal ileum are unremarkable. A normal appendix is seen in the right pelvis. The uterine fundus remains and is unremarkable. The cervix is not seen and may be surgically absent or atrophic. There is no evidence of hydrocolpos. No peroneal mass is appreciated. Urinary bladder is largely empty but appears intact. No adnexal abnormality is observed. No abdominal wall defect is seen. There are two stable bone islands in the intertrochanteric femur on the left. No bony destructive lesion is appreciated. Impression: Postoperative changes. Mild fatty infiltration of the liver. No evidence of intra-abdominal metastasis or pelvic recurrence. Electronically Signed by Sunil Villegas MD 06/18/2019 07:24 P
--- NOTE | 2019-06-18 17:37 | REP ---
Pelvic sonography: History: History of cervical carcinoma. Now with vaginal obstruction. Findings: Transabdominal scanning is performed. The patient declined transvaginal imaging. Scan quality is somewhat limited. Neither ovary could be seen directly transabdominally. No free fluid is seen. Visualized bladder salmon are smooth. Uterine dimensions are 6.1 x 2.9 x 2.7 cm. Endometrium could not be resolved. No free fluid. Impression: Somewhat limited exam. Atrophic appearing uterus. Transvaginal scanning was declined. Neither ovary is directly visualized. No adnexal mass or free fluid. Electronically Signed by Sunil Villegas MD 06/18/2019 07:24 P
== END ==
LOC: M RAD 15:02
PROVIDERS: ATTEND Internal Medicine Medical Oncology
DX: R91.1 Solitary pulmonary nodule (principal); E61.1 Iron deficiency; Z85.41 Personal history of malignant neoplasm of cervix uteri
CPT/HCPCS: 71260; 74177; 76856; Q9963; Q9967

== ENCOUNTER → 2019-07-01 | Outpatient (CLI) | payer MEDICARE, OTHER ==
[~2019-07-01] MED LIST changes: -GASTROGRAFIN SOLUTION 30ML (Q9963) As Ordered ONE; -ISOVUE-370 76% 100ML VIAL (Q9967) As Ordered ONE
--- NOTE | 2019-07-02 08:16 | REP ---
PET/CT: History: Diagnosing right middle lobe lung nodule. History of cervical carcinoma. Comparisons: Comparison chest CT June 18, 2019. Comparison prior PET-CT study January 10, 2017. TECHNIQUE: 40 minutes following the intravenous injection of a 8.51 mCi dose of F-18 FDG, three-dimensional PET scintigraphy is acquired from the skull base to the proximal thighs. Triplanar noncontrast CT scanning is acquired through the same anatomic range for attenuation correction, and image registration with scan parameters optimized to minimize radiation exposure to the patient. PET scintigraphy and CT datasets were fused and displayed on a workstation with multiplanar and projection display capability. PET/CT Findings: The previously noted right lung nodule is smaller today on accompanying CT study than it was on June 18, 2019. There is no visible radiotracer accumulation. Maximum standard uptake value is 0.86. No abnormal hypermetabolic uptake is seen within the thorax. There is a right-sided Yelpar-O-Pzgw. Head and neck soft tissues are unremarkable. In the abdomen and pelvis, there is normal distribution of tracer to the liver, spleen, genitourinary, and gastrointestinal structures. No abnormal hypermetabolic uptake is seen in the abdomen or pelvis. Impression: Negative PET scintigraphy. The recently identified right lung nodule has decreased in size since the June 18, [address] study suggesting an inflammatory etiology. Recommend followup chest CT. Electronically Signed by Sunil Villegas MD 07/02/2019 09:09 A
== END ==
LOC: M PLARAD 13:21
PROVIDERS: ATTEND Internal Medicine Medical Oncology
DX: R91.1 Solitary pulmonary nodule (principal)
CPT/HCPCS: 78815; A9552

== ENCOUNTER → 2019-08-28 | Outpatient (REF) | payer MEDICARE, OTHER | LOC: M SFHCLERA 18:16 | PROVIDERS: ATTEND Physician Assistant | DX: R31.9 Hematuria, unspecified (principal) | CPT/HCPCS: 81002; 87086; G0463 ==

== ENCOUNTER → 2020-02-02 | Outpatient (CLI) | payer MEDICARE, OTHER ==
[~2020-02-02] MED LIST changes: +ALEV1TAB PO; +D31000CA4 PO; +GABA-282 PO; -GABA-843 PO; +GASTROGRAFIN SOLUTION 30ML (Q9963) As Ordered ONE; +ISOVUE-370 76% 100ML VIAL As Ordered ONE; +OMEP1CAP73 PO; -OMEP20CA4 PO; +PANT40TA29 PO; -PANT40TA3 PO; +QUET25TA3 PO; +QUET50TA3 PO; -QUET5TAB PO; +VITA50005 PO
--- NOTE | 2020-02-02 15:43 | REP ---
REASON FOR EXAM: History of cervical carcinoma. COMPARISON: Multiple, the latest 06/18/2019. CONTRAST: 100 mL Isovue 370. The mediastinum and pulmonary luis enrique are unchanged. Nonenlarged left subclavian nodes are noted status quo. No mass or adenopathy has developed. There are no pleural or pericardial effusions. The imaged osseous structures are stable and intact. Evaluation of the lung redmond shows complete resolution of the ill-defined nodules seen previously in the right middle lobe. There are no new abnormal nodules, mass, or opacities. IMPRESSION: Improved lung redmond as described above. No new abnormalities. Electronically Signed by Chip Bender DO 02/02/2020 03:45 P
--- NOTE | 2020-02-02 15:59 | REP ---
REASON: Followup. History of cervical carcinoma. COMPARISON: Multiple, the latest 06/19/2019. CONTRAST: 100 mL Isovue 370. The liver is unchanged. There are no enhancing abnormalities. The spleen, pancreas, adrenal glands, and kidneys are again seen to be within normal limits and unchanged. The abdominal aorta and paraaortic regions are again seen to be within normal limits. No paraaortic adenopathy has developed. The bowel loops and their mesenteries are unchanged. There is no intestinal obstruction. There is no free fluid or free air. CT PELVIS: The bowel loops and their mesenteries are essentially unchanged. There is no intestinal obstruction. There is no free fluid or free air. There is no pelvic mass or adenopathy. Small stable left hemipelvic sidewall lymph nodes are again noted. Bone window technique throughout the exam shows no significant change in the appearance of the osseous structures. They are stable and intact. IMPRESSION: No significant change compared to the prior exam. There is no evidence of acute disease. Electronically Signed by Chip Bender DO 02/02/2020 04:00 P
== END ==
LOC: M RAD 11:54
PROVIDERS: ATTEND Internal Medicine Medical Oncology
DX: C53.9 Malignant neoplasm of cervix uteri, unspecified (principal); Z79.899 Other long term (current) drug therapy
CPT/HCPCS: 36591; 71260; 74177; 80053; 82306; 82728; 83550; 85027; J1642; Q9963; Q9967

== ENCOUNTER → 2020-05-06 | Outpatient (REF) | payer MEDICARE, OTHER ==
[~2020-05-06] MED LIST changes: -GABA-282 PO; +GABA-843 PO; -GASTROGRAFIN SOLUTION 30ML (Q9963) As Ordered ONE; -ISOVUE-370 76% 100ML VIAL As Ordered ONE; +QUET1TAB7 PO; -QUET25TA3 PO; -QUET50TA3 PO; +QUET5TAB PO
[2020-05-06 18:04] LABS: APPEARANCE, URINE CLEAR (CLEAR); BACTERIA, URINE AUTO NEGATIVE (NEGATIVE); BILIRUBIN, URINE AUTO NEGATIVE (NEGATIVE); BLOOD, URINE BLOOD 1+ (NEGATIVE); COLOR, URINE STRAW (YELLOW); GLUCOSE, URINE (UA) AUTO NEGATIVE (NEGATIVE); KETONE, URINE AUTO NEGATIVE (NEGATIVE); LEUKOCYTE ESTERASE, URINE AUTO NEGATIVE (NEGATIVE); NITRITE, URINE AUTO NEGATIVE (NEGATIVE); PROTEIN, URINE AUTO NEGATIVE (NEGATIVE); RBC, URINE AUTO 1 /HPF (0-3); SPECIFIC GRAVITY URINE AUTO 1.005 (1.002-1.035); SQUAMOUS EPITHELIAL CELL UR AU 0 /HPF (0-6); UROBILINOGEN, URINE AUTO 0.2 mg/dL (0.0-2.0); WBC, URINE AUTO 1 /HPF (0-3)
== END ==
LOC: M SMT 17:13
PROVIDERS: ATTEND Nurse Practitioner Women's Health
DX: R32 Unspecified urinary incontinence (principal)
CPT/HCPCS: 51798; 81001; 87086; G0463

== ENCOUNTER → 2020-05-19 | Outpatient (CLI) | payer MEDICARE, OTHER ==
[~2020-05-19] MED LIST changes: +GASTROGRAFIN SOLUTION 30ML (Q9963) As Ordered ONE; +ISOVUE-370 76% 100ML VIAL As Ordered ONE
[2020-06-21 10:06] LABS: BASO % 0.3 % (0.0-1.0); EOS % 0.6 % (0.0-3.0); HEMATOCRIT 37.8 % (36.0-47.0); HEMOGLOBIN 11.8 g/dl (12.0-15.5); LYMPH # 1.2 10^3/uL (1.5-5.0); LYMPH % 36.7 % (24.0-44.0); MEAN CORPUSCULAR HGB CONC 31.2 g/dl (32.0-36.5); MEAN CORPUSCULAR VOLUME 92.9 fl (80.0-96.0); MONO # 0.3 10^3/uL (0.0-0.8); MONO % 9.6 % (0.0-5.0); NEUTROPHILS # 1.7 10^3/uL (1.5-8.5); NEUTROPHILS % 52.5 % (36.0-66.0); PLATELET COUNT, AUTOMATED 251 10^3/uL (150-450); RED BLOOD COUNT 4.07 10^6/uL (4.00-5.40); WHITE BLOOD COUNT 3.3 10^3/uL (4.0-10.0)
--- NOTE | 2020-07-09 13:55 | REP ---
PELVIC SONOGRAPHY: HISTORY: Vaginal bleeding. Surveillance for stage 2 cervical cancer. Report was delayed due to a malware attack on the facility. COMPARISON: Pelvic sonography from 06/18/19 showed atrophic-appearing uterus. FINDINGS: Transabdominal scanning is performed. Small post menopausal uterus is seen with dimensions of 4.5 x 2.6 x 4.2 cm. Endometrial echo is 0.5 cm thick. No focal uterine mass is seen. No free fluid is noted. Normal ovaries are seen bilaterally. The right ovary measures 1.8 x 1.1 x 1.6 cm. Left ovarian dimensions are 1.7 x 1.2 x 1.4 cm. IMPRESSION: No morphologic abnormality. MTDD
--- NOTE | 2020-07-09 13:57 | REP ---
CT OF THE CHEST WITH IV CONTRAST: HISTORY: Stage 2 cervical carcinoma. COMPARISON: Chest CT study from 02/02/20. Reporting was delayed due to a malware attack on this facility. CONTRAST DOSE: 100 ml of intravenous Isovue 370. FINDINGS: Prior study from 06/18/19 showed a right middle lobe irregular nodule. This has resolved on 02/02/20. Today's study demonstrates no right middle lobe nodule. However, there is a new bi-lobed appearing ill-defined nodular opacity in the right upper lobe measuring 9 and 5 mm in greatest diameter in the bi-lobed component. This is not apparent on previous studies. No other new pulmonary nodule is appreciated. No pleural or pericardial effusion is seen. There is a right-sided Infusaport catheter. No hilar or mediastinal mass or adenopathy is seen. There is diffuse, mild fatty infiltration of the liver. No adrenal lesion is seen. No retrocrural adenopathy is observed. No bony destructive lesion is seen. IMPRESSION: The previously noted right middle lobe nodule has resolved. There is a new 9 mm nodular opacity in the right upper lobe on today's CT study. Otherwise, no acute disease. MTDD
[2020-07-25 20:49] LABS: ALBUMIN 3.9 GM/DL (3.2-5.2); ALT/SGPT 37 U/L (12-78); BILIRUBIN,TOTAL 0.3 MG/DL (0.2-1.0); BLOOD UREA NITROGEN 5 MG/DL (7-18); CALCIUM LEVEL 9.2 MG/DL (8.5-10.1); CARBON DIOXIDE LEVEL 30 MEQ/L (21-32); CHLORIDE LEVEL 98 MEQ/L (98-107); CREATININE FOR GFR 0.83 MG/DL (0.55-1.30); GLOMERULAR FILTRATION RATE > 60.0 (>58); GLUCOSE, FASTING 120 MG/DL (70-100); POTASSIUM SERUM 3.6 MEQ/L (3.5-5.1); SODIUM LEVEL 135 MEQ/L (136-145); TOTAL PROTEIN 7.6 GM/DL (6.4-8.2)
== END ==
LOC: M RAD 14:10
PROVIDERS: ATTEND Internal Medicine Medical Oncology
DX: C53.9 Malignant neoplasm of cervix uteri, unspecified (principal); R91.8 Other nonspecific abnormal finding of lung field
CPT/HCPCS: 36415; 71260; 74177; 76856; 80053; 85025; J1642; Q9963; Q9967

== ENCOUNTER → 2021-10-12 | Outpatient (CLI) | payer MEDICARE, OTHER ==
[~2021-10-12] MED LIST changes: +BUSP15TA47; +ERGO500029 PO; +GABA-282 PO; -GABA-843 PO; -GASTROGRAFIN SOLUTION 30ML (Q9963) As Ordered ONE; -ISOVUE-370 76% 100ML VIAL As Ordered ONE; -KLOR20TA42 PO; +LEVE500T5; +LEVO25TA5 PO; +POTA-141 PO; +QUET1TAB17 PO; -QUET1TAB7 PO; +QUET50TA4 PO; -QUET5TAB PO; +THERTAB21 PO; -VITA50005 PO
== END ==
LOC: M WHC 13:26
PROVIDERS: ATTEND Specialist
DX: Z12.31 Encounter for screening mammogram for malignant neoplasm of breast (principal)

== ENCOUNTER → 2021-11-21 | Outpatient (CLI) | payer MEDICARE, OTHER ==
[2021-11-21 10:44] LABS: BLOOD UREA NITROGEN 8 MG/DL (7-18); CALCIUM LEVEL 9.2 MG/DL (8.5-10.1); CARBON DIOXIDE LEVEL 33 MEQ/L (21-32); CHLORIDE LEVEL 103 MEQ/L (98-107); CHOLESTEROL LEVEL 161 MG/DL (<200); CHOLESTEROL RISK RATIO 2.476 (<5); CREATININE FOR GFR 0.83 MG/DL (0.55-1.30); GLOMERULAR FILTRATION RATE > 60.0 (>58); GLUCOSE, FASTING 97 MG/DL (70-100); HDL CHOLESTEROL 65 MG/DL (>40); LDL CHOLESTEROL 76 MG/DL (<100); NON-HDL-C 96 MG/DL; POTASSIUM SERUM 3.7 MEQ/L (3.5-5.1); SODIUM LEVEL 140 MEQ/L (136-145); TRIGLYCERIDES LEVEL 99 MG/DL (<150)
[2021-11-21 11:09] LABS: HEMOGLOBIN A1c 4.9 %
== END ==
LOC: M LAB 08:53
PROVIDERS: ATTEND Family Medicine
DX: Z13.1 Encounter for screening for diabetes mellitus (principal); E07.9 Disorder of thyroid, unspecified; E78.00 Pure hypercholesterolemia, unspecified

== ENCOUNTER → 2022-06-30 | Outpatient (CLI) | payer OTHER ==
[~2022-06-30] MED LIST changes: +ONDA-83 PO; +POTA-151 PO
== END ==
LOC: M RAD 10:38
PROVIDERS: ATTEND Family Medicine
DX: R68.89 Other general symptoms and signs (principal); I99.8 Other disorder of circulatory system; I73.9 Peripheral vascular disease, unspecified

== ENCOUNTER → 2022-10-20 | Outpatient (CLI) | payer OTHER ==
[~2022-10-20] MED LIST changes: +CLOP75TA99 PO; -PLAV1TAB2 PO
== END ==
LOC: M WHC 13:58
PROVIDERS: ATTEND Specialist
DX: Z12.31 Encounter for screening mammogram for malignant neoplasm of breast (principal)

== ENCOUNTER 2023-08-30 09:54 | Inpatient (IN) | payer MEDICARE, OTHER ==
[~2023-08-30] VITALS: Ht 167.6 cm; Wt 56.4 kg
[2023-08-30] VITALS (7 sets, daily range): BP systolic 112–134; BP diastolic 57–65; TEMP 97.6; O2SAT 95–100
[~2023-08-30 09:54] MED LIST changes: -BUSP15TA47; +BUSP15TA47 PO
[2023-08-30] MEDS ORDERED: SULF500T2 PO (10:08)
[2023-08-30 10:27] LABS: BASO % 0.4 % (0.0-1.0); EOS % 0.4 % (0.0-3.0); HEMATOCRIT 39.3 % (36.0-47.0); HEMOGLOBIN 12.3 g/dl (12.0-15.5); LYMPH # 1.1 10^3/uL (1.5-5.0); MEAN CORPUSCULAR HEMOGLOBIN 31.5 pg (27.0-33.0); MEAN CORPUSCULAR HGB CONC 31.3 g/dl (32.0-36.5); MEAN CORPUSCULAR VOLUME 100.5 fl (80.0-96.0); MONO # 0.4 10^3/uL (0.0-0.8); MONO % 7.9 % (2.0-8.0); NEUTROPHILS # 3.5 10^3/uL (1.5-8.5); NEUTROPHILS % 69.1 % (36.0-66.0); PLATELET COUNT, AUTOMATED 250 10^3/uL (150-450); RED BLOOD COUNT 3.91 10^6/uL (4.00-5.40); WHITE BLOOD COUNT 5.1 10^3/uL (4.0-10.0)
[2023-08-30 10:53] LABS: ALBUMIN 3.7 G/DL (3.2-5.2); ALKALINE PHOSPHATASE 64 U/L (46-116); ALT/SGPT 21 U/L (7.0-40); AST/SGOT 18 U/L (<34); BILIRUBIN,DIRECT 0.2 MG/DL (<0.4); BILIRUBIN,TOTAL 0.6 MG/DL (0.3-1.2); BLOOD UREA NITROGEN 11 MG/DL (9-23); CALCIUM LEVEL 8.7 MG/DL (8.5-10.1); CARBON DIOXIDE LEVEL 28 MMOL/L (20-31); CHLORIDE LEVEL 105 MMOL/L (98-107); CREATININE FOR GFR 0.65 MG/DL (0.55-1.30); GLOMERULAR FILTRATION RATE > 60.0 (>51); GLUCOSE, FASTING 115 MG/DL (60-100); POTASSIUM SERUM 3.4 MMOL/L (3.5-5.1); SODIUM LEVEL 142 MMOL/L (136-145); TOTAL PROTEIN 6.3 G/DL (5.7-8.2)
[2023-08-30 10:56] LABS: THYROID STIMULATING HORMONE 2.937 uIU/ML (0.55-4.78)
[2023-08-30] MEDS ORDERED: MED REC IN PROGRESS XX SCH (11:35)
[2023-08-30 13:42] LABS: VENOUS BASE EXCESS 0.8 (-2.0-2.0); VENOUS HCO3 26.4 MMOL/L (23.0-27.0); VENOUS PARTIAL PRESSURE O2 78.9 mmHg (30.0-50.0); VENOUS PH 7.376 UNITS (7.330-7.430); VENOUS STANDARD HCO3 25.1 MMOL/L; VENOUS TOTAL CO2 27.8 MMOL/L (24.0-28.0)
[2023-08-30 13:42] LABS: ETHYL ALCOHOL (ETHANOL) 0.004 % (0.000-0.010)
[2023-08-30 13:43] LABS: SALICYLATE LEVEL < 3.0 MG/DL (<30)
[2023-08-30 13:44] LABS: OSMOLALITY SERUM 296 MOSM/KG (275-295)
[2023-08-30] MEDS ORDERED: NS 1,000 ML IV SCH (14:35)
[2023-08-30] MEDS ORDERED: SUCR1TAB56 PO (15:16)
[2023-08-30] MEDS ORDERED: HOME MED LIST COMPLETE! XX SCH (15:20)
[2023-08-30] MEDS ORDERED: ACETAMINOPHEN TAB 650MG DOSE (2X325MG) PO PRN (15:55)
[2023-08-30 16:32] LABS: PROCALCITONIN <0.04 ng/ml
[2023-08-30] MEDS ORDERED: SUCRALFATE 1 GM TAB PO SCH (17:30)
[2023-08-30] MEDS ORDERED: methylPREDNISolone 1,000 MG, VIAL MATE ADAPTER 1 EACH in NS 250 ML IV ONE (18:35)
[2023-08-30] MEDS ORDERED: PROPOFOL 1,000 MG/100 ML VIAL As Ordered ONE (20:24)
[2023-08-30] MEDS ORDERED: IPRATROPIUM 0.5MG/ALBUTEROL 2.5MG INH SOL UD 3ML (DUONEB) NEB ONE (20:45)
[2023-08-30] MEDS: propofoL 1,000 MG in IV 1 EA IV SCH (20:47)
[2023-08-30] MEDS ORDERED: busPIRone 5 MG TAB PO SCH (21:00)
[2023-08-30] MEDS ORDERED: PANTOPRAZOLE 40MG TAB (PROTONIX) PO SCH (21:00)
[2023-08-30] MEDS ORDERED: QUEtiapine FUMARATE 25 MG TAB PO SCH (21:00)
[2023-08-30] MEDS ORDERED: sulfaSALAzine 500 MG TABEC PO SCH (21:00)
[2023-08-30 21:05] LABS: ABG BASE EXCESS -3.3 (-2.0-2.0); ABG HCO3 22.2 MMOL/L (22.0-26.0); ABG O2 SATURATION 96.7 % (95.0-99.0); ABG PARTIAL PRESSURE CO2 41.5 mmHg (35.0-45.0); ABG PARTIAL PRESSURE O2 97.1 mmHg (75.0-100.0); ABG STANDARD HCO3 21.7 MMOL/L. (22.0-26.0); ABG TOTAL CO2 23.5 MMOL/L (22.0-29.0); ABG pH (ARTERIAL) 7.346 UNITS (7.350-7.450)
[2023-08-30] MEDS ORDERED: ROCURONIUM BROMIDE 50MG/5ML VIAL IV ONE (21:50)
[2023-08-30] MEDS ORDERED: ETOMIDATE INJ 20MG/10ML VIAL IV ONE (21:50)
[2023-08-30] MEDS: POTASSIUM CHLORIDE INJ 20 MEQ in D5W/LR 1,000 ML IV SCH (21:51)
[2023-08-30 21:53] LABS: C REACTIVE PROTEIN QUANTITATIV < 0.40 MG/DL (<1.0)
[2023-08-30 21:55] LABS: CPK CREATINE PHOSPHOKINASE 129 U/L (34-145)
[2023-08-30] MEDS: ALBUTEROL SULFATE 2.5MG/0.5ML INH NEB SOLN NEB SCH (23:08)
[2023-08-31] VITALS (38 sets, daily range): BP systolic 112–148; BP diastolic 56–70; TEMP 98–100.4; O2SAT 95–99
[2023-08-31] MEDS: ALBUTEROL SULFATE 2.5MG/0.5ML INH NEB SOLN NEB SCH ×6 (03:11→23:35)
[2023-08-31 05:06] LABS: HEMATOCRIT 38.4 % (36.0-47.0); HEMOGLOBIN 12.1 g/dl (12.0-15.5); MEAN CORPUSCULAR HEMOGLOBIN 31.6 pg (27.0-33.0); MEAN CORPUSCULAR HGB CONC 31.5 g/dl (32.0-36.5); MEAN CORPUSCULAR VOLUME 100.3 fl (80.0-96.0); PLATELET COUNT, AUTOMATED 281 10^3/uL (150-450); RED BLOOD COUNT 3.83 10^6/uL (4.00-5.40); WHITE BLOOD COUNT 14.4 10^3/uL (4.0-10.0)
[2023-08-31] MEDS: POTASSIUM CHLORIDE INJ 20 MEQ in D5W/LR 1,000 ML IV SCH (05:12)
[2023-08-31 05:33] LABS: BLOOD UREA NITROGEN 15 MG/DL (9-23); CALCIUM LEVEL 8.6 MG/DL (8.5-10.1); CARBON DIOXIDE LEVEL 23 MMOL/L (20-31); CHLORIDE LEVEL 106 MMOL/L (98-107); CREATININE FOR GFR 0.64 MG/DL (0.55-1.30); GLOMERULAR FILTRATION RATE > 60.0 (>51); GLUCOSE, FASTING 294 MG/DL (60-100); MAGNESIUM LEVEL 1.4 MG/DL (1.8-2.4); POTASSIUM SERUM 3.2 MMOL/L (3.5-5.1); SODIUM LEVEL 142 MMOL/L (136-145)
[2023-08-31 05:55] LABS: ABG BASE EXCESS -2.4 (-2.0-2.0); ABG HCO3 21.9 MMOL/L (22.0-26.0); ABG O2 SATURATION 98.2 % (95.0-99.0); ABG PARTIAL PRESSURE CO2 36.1 mmHg (35.0-45.0); ABG PARTIAL PRESSURE O2 131.8 mmHg (75.0-100.0); ABG STANDARD HCO3 22.5 MMOL/L. (22.0-26.0); ABG pH (ARTERIAL) 7.401 UNITS (7.350-7.450)
[2023-08-31] MEDS: MAG SULF 1GM/100ML (MAG RUN) 1 GM in IV 1 EA IV SCH ×3 (06:38→08:47)
[2023-08-31] MEDS: LR 1,000 ML IV SCH ×2 (07:45→20:13)
[2023-08-31] MEDS: KCL 10MEQ/100ML SWI (KRUN) 10 MEQ in IV 1 EA IV SCH ×2 (08:40→10:02)
[2023-08-31] MEDS: ENOXAPARIN 40MG/0.4ML SYRINGE (J1650 PER 10MG) SC SCH ×2 (08:45→16:24)
[2023-08-31] MEDS ORDERED: PANTOPRAZOLE 40MG VIAL IV SCH (09:00)
[2023-08-31] MEDS ORDERED: DULoxetine 30MG CAPSULE (CYMBALTA) PO SCH (09:00)
[2023-08-31] MEDS ORDERED: methylPREDNISolone 1,000 MG, VIAL MATE ADAPTER 1 EACH in NS 250 ML IV ONE (10:00)
[2023-08-31] MEDS: propofoL 1,000 MG in IV 1 EA IV SCH ×2 (10:27→20:15)
[2023-08-31] MEDS ORDERED: IMMUNE GLOBULIN 10% 0 GM in IV 1 EA IV SCH (10:30)
[2023-08-31 10:33] LABS: CLOSTRIDIUM DIFFICILE PCR NEGATIVE (NEGATIVE)
[2023-08-31] MEDS: PYRIDOSTIGMINE 10 MG IM SCH ×2 (13:09→20:16)
[2023-08-31] MEDS: IMMUNE GLOBULIN 10% 20 GM in IV 1 EA IV SCH (13:33)
[2023-08-31] MEDS: levETIRAcetam INJection 500 MG in D5W MINI-BAG PLUS 100 ML IV SCH (13:45)
[2023-08-31] MEDS ORDERED: ACETAMINOPHEN 650MG SUPP PR PRN (16:20)
[2023-08-31 16:55] LABS: BASO % 0.1 % (0.0-1.0); HEMATOCRIT 36.3 % (36.0-47.0); HEMOGLOBIN 11.5 g/dl (12.0-15.5); LYMPH # 0.4 10^3/uL (1.5-5.0); LYMPH % 2.1 % (24.0-44.0); MEAN CORPUSCULAR HEMOGLOBIN 31.5 pg (27.0-33.0); MEAN CORPUSCULAR HGB CONC 31.7 g/dl (32.0-36.5); MEAN CORPUSCULAR VOLUME 99.5 fl (80.0-96.0); MONO # 0.5 10^3/uL (0.0-0.8); MONO % 2.5 % (2.0-8.0); NEUTROPHILS # 18.2 10^3/uL (1.5-8.5); NEUTROPHILS % 94.7 % (36.0-66.0); PLATELET COUNT, AUTOMATED 291 10^3/uL (150-450); RED BLOOD COUNT 3.65 10^6/uL (4.00-5.40); WHITE BLOOD COUNT 19.2 10^3/uL (4.0-10.0)
[2023-08-31 17:33] LABS: INR 1.12; PROTHROMBIN TIME 14.1 SECONDS (12.5-14.5)
[2023-08-31] MEDS: PANTOPRAZOLE 40MG VIAL IV SCH (20:15)
[2023-09-01] VITALS (41 sets, daily range): BP systolic 102–141; BP diastolic 53–85; TEMP 98.4–99.5; O2SAT 94–98
[2023-09-01] MEDS: levETIRAcetam INJection 500 MG in D5W MINI-BAG PLUS 100 ML IV SCH ×2 (00:43→12:51)
[2023-09-01] MEDS: ALBUTEROL SULFATE 2.5MG/0.5ML INH NEB SOLN NEB SCH ×6 (03:07→23:50)
[2023-09-01] MEDS: LR 1,000 ML IV SCH ×3 (04:07→23:16)
[2023-09-01] MEDS: PYRIDOSTIGMINE 10 MG IM SCH ×3 (04:07→20:57)
[2023-09-01 05:30] LABS: HEMATOCRIT 31.9 % (36.0-47.0); HEMOGLOBIN 10.1 g/dl (12.0-15.5); LYMPH # 0.4 10^3/uL (1.5-5.0); LYMPH % 1.6 % (24.0-44.0); MEAN CORPUSCULAR HEMOGLOBIN 31.5 pg (27.0-33.0); MEAN CORPUSCULAR HGB CONC 31.7 g/dl (32.0-36.5); MEAN CORPUSCULAR VOLUME 99.4 fl (80.0-96.0); MONO # 0.8 10^3/uL (0.0-0.8); MONO % 3.5 % (2.0-8.0); NEUTROPHILS # 21.3 10^3/uL (1.5-8.5); NEUTROPHILS % 94.5 % (36.0-66.0); PLATELET COUNT, AUTOMATED 261 10^3/uL (150-450); RED BLOOD COUNT 3.21 10^6/uL (4.00-5.40); WHITE BLOOD COUNT 22.5 10^3/uL (4.0-10.0)
[2023-09-01 05:52] LABS: ALBUMIN 2.9 G/DL (3.2-5.2); ALKALINE PHOSPHATASE 50 U/L (46-116); ALT/SGPT 50 U/L (7.0-40); AST/SGOT 16 U/L (<34); BILIRUBIN,TOTAL 0.4 MG/DL (0.3-1.2); BLOOD UREA NITROGEN 15 MG/DL (9-23); CALCIUM LEVEL 8.8 MG/DL (8.5-10.1); CARBON DIOXIDE LEVEL 27 MMOL/L (20-31); CHLORIDE LEVEL 106 MMOL/L (98-107); CREATININE FOR GFR 0.63 MG/DL (0.55-1.30); GLOMERULAR FILTRATION RATE > 60.0 (>51); GLUCOSE, FASTING 159 MG/DL (60-100); MAGNESIUM LEVEL 1.7 MG/DL (1.8-2.4); POTASSIUM SERUM 3.1 MMOL/L (3.5-5.1); SODIUM LEVEL 143 MMOL/L (136-145); TOTAL PROTEIN 6.2 G/DL (5.7-8.2)
[2023-09-01] MEDS ORDERED: MAG SULF 1GM/100ML (MAG RUN) 1 GM in IV 1 EA IV ONE (06:05)
[2023-09-01 06:10] LABS: ABG BASE EXCESS 4.6 (-2.0-2.0); ABG O2 SATURATION 96.2 % (95.0-99.0); ABG PARTIAL PRESSURE CO2 32.3 mmHg (35.0-45.0); ABG PARTIAL PRESSURE O2 83.2 mmHg (75.0-100.0); ABG STANDARD HCO3 28.6 MMOL/L. (22.0-26.0)
[2023-09-01] MEDS ORDERED: methylPREDNISolone 1,000 MG, VIAL MATE ADAPTER 1 EACH in NS 250 ML IV ONE ×2 (07:25→11:00)
[2023-09-01] MEDS: PANTOPRAZOLE 40MG VIAL IV SCH ×2 (08:07→20:57)
[2023-09-01] MEDS: KCL 10MEQ/100ML SWI (KRUN) 10 MEQ in IV 1 EA IV SCH ×3 (08:07→10:20)
[2023-09-01] MEDS: ENOXAPARIN 40MG/0.4ML SYRINGE (J1650 PER 10MG) SC SCH (08:07)
[2023-09-01] MEDS: propofoL 1,000 MG in IV 1 EA IV SCH ×2 (09:02→20:57)
[2023-09-01] MEDS: IMMUNE GLOBULIN 10% 20 GM in IV 1 EA IV SCH (13:40)
[2023-09-02] VITALS (38 sets, daily range): BP systolic 105–155; BP diastolic 53–71; TEMP 98.4–99; O2SAT 95–99
[2023-09-02] MEDS: levETIRAcetam INJection 500 MG in D5W MINI-BAG PLUS 100 ML IV SCH ×2 (00:03→13:12)
[2023-09-02] MEDS: ALBUTEROL SULFATE 2.5MG/0.5ML INH NEB SOLN NEB SCH ×5 (03:12→19:18)
[2023-09-02] MEDS: PYRIDOSTIGMINE 10 MG IM SCH ×3 (04:31→20:21)
[2023-09-02 05:10] LABS: BASO % 0.1 % (0.0-1.0); EOS % 0.1 % (0.0-3.0); HEMATOCRIT 32.6 % (36.0-47.0); HEMOGLOBIN 10.3 g/dl (12.0-15.5); LYMPH # 0.7 10^3/uL (1.5-5.0); LYMPH % 3.8 % (24.0-44.0); MEAN CORPUSCULAR HEMOGLOBIN 31.5 pg (27.0-33.0); MEAN CORPUSCULAR HGB CONC 31.6 g/dl (32.0-36.5); MEAN CORPUSCULAR VOLUME 99.7 fl (80.0-96.0); MONO # 0.7 10^3/uL (0.0-0.8); MONO % 3.6 % (2.0-8.0); NEUTROPHILS # 16.6 10^3/uL (1.5-8.5); NEUTROPHILS % 91.7 % (36.0-66.0); PLATELET COUNT, AUTOMATED 230 10^3/uL (150-450); RED BLOOD COUNT 3.27 10^6/uL (4.00-5.40); WHITE BLOOD COUNT 18.1 10^3/uL (4.0-10.0)
[2023-09-02 05:34] LABS: ALBUMIN 2.8 G/DL (3.2-5.2); ALKALINE PHOSPHATASE 45 U/L (46-116); ALT/SGPT 40 U/L (7.0-40); AST/SGOT 19 U/L (<34); BILIRUBIN,TOTAL 0.3 MG/DL (0.3-1.2); BLOOD UREA NITROGEN 16 MG/DL (9-23); CALCIUM LEVEL 8.2 MG/DL (8.5-10.1); CARBON DIOXIDE LEVEL 26 MMOL/L (20-31); CHLORIDE LEVEL 105 MMOL/L (98-107); CREATININE FOR GFR 0.58 MG/DL (0.55-1.30); GLOMERULAR FILTRATION RATE > 60.0 (>51); GLUCOSE, FASTING 116 MG/DL (60-100); MAGNESIUM LEVEL 1.8 MG/DL (1.8-2.4); PHOSPHORUS LEVEL 3.8 MG/DL (2.5-4.9); POTASSIUM SERUM 3.5 MMOL/L (3.5-5.1); SODIUM LEVEL 139 MMOL/L (136-145); TOTAL PROTEIN 6.5 G/DL (5.7-8.2)
[2023-09-02 05:59] LABS: ABG BASE EXCESS 2.1 (-2.0-2.0); ABG HCO3 24.1 MMOL/L (22.0-26.0); ABG O2 SATURATION 96.9 % (95.0-99.0); ABG PARTIAL PRESSURE CO2 28.6 mmHg (35.0-45.0); ABG PARTIAL PRESSURE O2 89.4 mmHg (75.0-100.0); ABG STANDARD HCO3 26.4 MMOL/L. (22.0-26.0); ABG TOTAL CO2 24.9 MMOL/L (22.0-29.0); ABG pH (ARTERIAL) 7.543 UNITS (7.350-7.450)
[2023-09-02] MEDS: PANTOPRAZOLE 40MG VIAL IV SCH ×2 (08:35→20:18)
[2023-09-02] MEDS: propofoL 1,000 MG in IV 1 EA IV SCH ×2 (08:36→20:18)
[2023-09-02] MEDS: ENOXAPARIN 40MG/0.4ML SYRINGE (J1650 PER 10MG) SC SCH (08:36)
[2023-09-02] MEDS: LR 1,000 ML IV SCH ×2 (08:37→18:16)
[2023-09-02] MEDS: IMMUNE GLOBULIN 10% 20 GM in IV 1 EA IV SCH (14:17)
[2023-09-03] VITALS (38 sets, daily range): BP systolic 108–148; BP diastolic 53–70; TEMP 97.6–99.9; O2SAT 95–98
[2023-09-03] MEDS: levETIRAcetam INJection 500 MG in D5W MINI-BAG PLUS 100 ML IV SCH ×2 (00:21→13:53)
[2023-09-03] MEDS: ALBUTEROL SULFATE 2.5MG/0.5ML INH NEB SOLN NEB SCH ×7 (00:45→23:37)
[2023-09-03] MEDS: LR 1,000 ML IV SCH ×2 (04:41→14:16)
[2023-09-03] MEDS: PYRIDOSTIGMINE 10 MG IM SCH ×3 (04:41→20:29)
[2023-09-03 04:55] LABS: BASO % 0.1 % (0.0-1.0); EOS % 0.1 % (0.0-3.0); LYMPH # 0.9 10^3/uL (1.5-5.0); LYMPH % 11.6 % (24.0-44.0); MEAN CORPUSCULAR HEMOGLOBIN 31.5 pg (27.0-33.0); MEAN CORPUSCULAR HGB CONC 32.3 g/dl (32.0-36.5); MEAN CORPUSCULAR VOLUME 97.8 fl (80.0-96.0); MONO # 0.5 10^3/uL (0.0-0.8); MONO % 6.3 % (2.0-8.0); NEUTROPHILS # 6.5 10^3/uL (1.5-8.5); NEUTROPHILS % 81.6 % (36.0-66.0); PLATELET COUNT, AUTOMATED 191 10^3/uL (150-450); RED BLOOD COUNT 3.17 10^6/uL (4.00-5.40)
[2023-09-03 05:26] LABS: ALBUMIN 2.6 G/DL (3.2-5.2); ALKALINE PHOSPHATASE 60 U/L (46-116); ALT/SGPT 242 U/L (7.0-40); AST/SGOT 192 U/L (<34); BILIRUBIN,TOTAL 0.5 MG/DL (0.3-1.2); BLOOD UREA NITROGEN 14 MG/DL (9-23); CARBON DIOXIDE LEVEL 25 MMOL/L (20-31); CHLORIDE LEVEL 103 MMOL/L (98-107); CREATININE FOR GFR 0.53 MG/DL (0.55-1.30); GLOMERULAR FILTRATION RATE > 60.0 (>51); GLUCOSE, FASTING 100 MG/DL (60-100); MAGNESIUM LEVEL 1.5 MG/DL (1.8-2.4); POTASSIUM SERUM 3.5 MMOL/L (3.5-5.1); SODIUM LEVEL 138 MMOL/L (136-145); TOTAL PROTEIN 6.8 G/DL (5.7-8.2)
[2023-09-03 05:38] LABS: ABG BASE EXCESS 1.9 (-2.0-2.0); ABG HCO3 24.8 MMOL/L (22.0-26.0); ABG O2 SATURATION 97.6 % (95.0-99.0); ABG PARTIAL PRESSURE CO2 32.6 mmHg (35.0-45.0); ABG PARTIAL PRESSURE O2 105.6 mmHg (75.0-100.0); ABG STANDARD HCO3 26.2 MMOL/L. (22.0-26.0); ABG TOTAL CO2 25.8 MMOL/L (22.0-29.0); ABG pH (ARTERIAL) 7.499 UNITS (7.350-7.450)
[2023-09-03] MEDS ORDERED: MAG SULF 1GM/100ML (MAG RUN) 1 GM in IV 1 EA IV ONE (06:45)
[2023-09-03] MEDS: propofoL 1,000 MG in IV 1 EA IV SCH ×2 (08:27→19:44)
[2023-09-03] MEDS: PANTOPRAZOLE 40MG VIAL IV SCH ×2 (08:59→20:28)
[2023-09-03] MEDS: ENOXAPARIN 40MG/0.4ML SYRINGE (J1650 PER 10MG) SC SCH (08:59)
[2023-09-03] MEDS: IMMUNE GLOBULIN 10% 20 GM in IV 1 EA IV SCH (13:52)
[2023-09-04] VITALS (18 sets, daily range): BP systolic 97–158; BP diastolic 53–75; TEMP 98.5–99.8; O2SAT 85–96
[2023-09-04] MEDS: levETIRAcetam INJection 500 MG in D5W MINI-BAG PLUS 100 ML IV SCH (00:23)
[2023-09-04] MEDS: LR 1,000 ML IV SCH (00:24)
[2023-09-04] MEDS: ALBUTEROL SULFATE 2.5MG/0.5ML INH NEB SOLN NEB SCH ×3 (03:18→11:04)
[2023-09-04 04:21] LABS: EOS % 0.1 % (0.0-3.0); HEMATOCRIT 32.7 % (36.0-47.0); HEMOGLOBIN 10.6 g/dl (12.0-15.5); LYMPH # 0.6 10^3/uL (1.5-5.0); LYMPH % 8.7 % (24.0-44.0); MEAN CORPUSCULAR HEMOGLOBIN 31.8 pg (27.0-33.0); MEAN CORPUSCULAR HGB CONC 32.4 g/dl (32.0-36.5); MEAN CORPUSCULAR VOLUME 98.2 fl (80.0-96.0); MONO # 0.5 10^3/uL (0.0-0.8); MONO % 7.3 % (2.0-8.0); NEUTROPHILS # 5.7 10^3/uL (1.5-8.5); NEUTROPHILS % 83.6 % (36.0-66.0); PLATELET COUNT, AUTOMATED 181 10^3/uL (150-450); RED BLOOD COUNT 3.33 10^6/uL (4.00-5.40); WHITE BLOOD COUNT 6.8 10^3/uL (4.0-10.0)
[2023-09-04 04:55] LABS: ALBUMIN 2.6 G/DL (3.2-5.2); ALKALINE PHOSPHATASE 61 U/L (46-116); ALT/SGPT 208 U/L (7.0-40); AST/SGOT 79 U/L (<34); BILIRUBIN,TOTAL 0.5 MG/DL (0.3-1.2); BLOOD UREA NITROGEN 14 MG/DL (9-23); CALCIUM LEVEL 8.2 MG/DL (8.5-10.1); CARBON DIOXIDE LEVEL 26 MMOL/L (20-31); CHLORIDE LEVEL 101 MMOL/L (98-107); CREATININE FOR GFR 0.48 MG/DL (0.55-1.30); GLOMERULAR FILTRATION RATE > 60.0 (>51); GLUCOSE, FASTING 120 MG/DL (60-100); MAGNESIUM LEVEL 1.7 MG/DL (1.8-2.4); POTASSIUM SERUM 3.8 MMOL/L (3.5-5.1); SODIUM LEVEL 134 MMOL/L (136-145); TOTAL PROTEIN 7.1 G/DL (5.7-8.2)
[2023-09-04 05:46] LABS: ABG BASE EXCESS 3.8 (-2.0-2.0); ABG HCO3 26.8 MMOL/L (22.0-26.0); ABG O2 SATURATION 96.3 % (95.0-99.0); ABG PARTIAL PRESSURE CO2 34.6 mmHg (35.0-45.0); ABG PARTIAL PRESSURE O2 85.7 mmHg (75.0-100.0); ABG STANDARD HCO3 27.9 MMOL/L. (22.0-26.0); ABG TOTAL CO2 27.9 MMOL/L (22.0-29.0); ABG pH (ARTERIAL) 7.507 UNITS (7.350-7.450)
[2023-09-04] MEDS: PYRIDOSTIGMINE 10 MG IM SCH (05:53)
[2023-09-04] MEDS ORDERED: MAG SULF 1GM/100ML (MAG RUN) 1 GM in IV 1 EA IV ONE (06:00)
[2023-09-04] MEDS: ENOXAPARIN 40MG/0.4ML SYRINGE (J1650 PER 10MG) SC SCH (09:33)
[2023-09-04] MEDS: PANTOPRAZOLE 40MG VIAL IV SCH (09:34)
[2023-09-04] MEDS ORDERED: MORPHINE 2 MG/ML 1ML VIAL IV PRN (12:50)
[2023-09-04] MEDS ORDERED: LORazepam 1 MG TAB PO PRN (12:50)
[2023-09-04] MEDS ORDERED: SCOPOLAMINE 1MG TRANSDERMAL PATCH TOP PRN (12:50)
[2023-09-04] MEDS ORDERED: ONDANSETRON 4MG ORAL DISINTEGRATING TAB PO PRN (12:50)
[2023-09-04] MEDS: IMMUNE GLOBULIN 10% 20 GM in IV 1 EA IV SCH (13:00)
[2023-09-06 12:12] LABS: ACETYLCHOLINE RCPTOR BLOCK AB 23 % (0-25); ALDOLASE 6.2 U/L (3.3-10.3); ANA (HEP2) Positive (.)
== END 2023-09-04 13:17 | disposition expired | DRG 56 ==
LOC: M ED 09:54 → EDBD 09:54 → M ED INP 15:51 → ENRESERV 16:45 → M ICU 21:21
PROVIDERS: ADMIT Family Medicine; ATTEND Internal Medicine Critical Care Medicine
PROC: 5A1955Z Respiratory Ventilation, Greater than 96 Consecutive Hours (ICD-10-PCS; principal; 2023-08-30)
PROC: 0BH17EZ Insertion of Endotracheal Airway into Trachea, Via Natural or Artificial Opening (ICD-10-PCS; 2023-08-30)
DX: G70.01 Myasthenia gravis with (acute) exacerbation (principal); J96.01 Acute respiratory failure with hypoxia; G40.209 Localization-related (focal) (partial) symptomatic epilepsy and epileptic syndromes with complex partial seizures, not intractable, without status epilepticus; R53.1 Weakness; K90.0 Celiac disease; F31.9 Bipolar disorder, unspecified; E87.6 Hypokalemia; D72.829 Elevated white blood cell count, unspecified; E83.42 Hypomagnesemia; R74.01 Elevation of levels of liver transaminase levels; Z51.5 Encounter for palliative care; Z66 Do not resuscitate; Z86.73 Personal history of transient ischemic attack (TIA), and cerebral infarction without residual deficits; Z85.41 Personal history of malignant neoplasm of cervix uteri; Z79.899 Other long term (current) drug therapy; Z92.3 Personal history of irradiation; Z92.21 Personal history of antineoplastic chemotherapy; Z91.018 Allergy to other foods